=== PATIENT | female | born 1940 | race Caucasian/White ===

== ENCOUNTER 2019-03-14 12:40 | Observation (INO) ==
--- NOTE | 2019-03-14 16:34 | RAD ---
History: Fall and intractable pain Study: Portable AP chest Comparison: December 24, 2016 Findings: There is limited inspiration of clear lungs without pneumothorax or effusion. The heart size is mildly enlarged with intact pacemaker wire leads via the left subclavian vein. No significant bony abnormality is demonstrated. Impression: No acute cardiopulmonary disease Reported By:
--- NOTE | 2019-03-14 16:35 | RAD ---
History: Fall and left shoulder pain Study: Two views of the left shoulder Findings: There is severe osteophytes and deformity about the glenohumeral joint. No fracture is demonstrated. There is severe narrowing about the glenohumeral joint. 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
--- NOTE | 2019-03-14 16:36 | RAD ---
History: Fall and right shoulder pain Study: Two views the right shoulder Comparison: August 31, 2013 Findings: There are moderate osteophytes about the AC joint and moderate to severe osteophytes and joint space narrowing about the glenohumeral joint. No fracture is demonstrated. Impression: Severe erosive osteoarthritis of the glenohumeral joint Reported By:
--- NOTE | 2019-03-14 16:38 | RAD ---
History: Fall and neck pain Study: Five views of the cervical spine, overall AP and lateral Comparison: None Findings: There is straightening of the cervical spine with loss of normal lordotic curvature. There is mild C3-4 and 4 5 and 5 6 disc space narrowing with minimal osteophyte formation. No fracture is demonstrated. There are [id number] osteophytes diffusely about the facet joints. There is heavy calcification in the carotid bifurcations. Impression: Mild lower cervical degenerative disc disease and [id number] diffuse cervical facet joint osteoarthritis Reported By:
[2019-03-14 16:39] LABS: BASOPHILS # (AUTO) 0.1 X10^3/uL (0.0-0.1); BASOPHILS % (AUTO) 1.1 % (0.2-1.0); EOSINOPHILS # (AUTO) 0.1 x10^3/uL (0.0-0.2); EOSINOPHILS % (AUTO) 1.7 % (0.9-2.9); HEMOGLOBIN 12.4 g/dL (12.0-16.0); LYMPHOCYTES # (AUTO) 1.6 X10^3/uL (1.3-2.9); MEAN CORPUSCULAR HEMOGLOBIN 27.8 pg (27.0-34.0); MEAN CORPUSCULAR HGB CONC 32.6 g/dL (33.0-35.0); MEAN CORPUSCULAR VOLUME 85.3 fL (80.0-100.0); MEAN PLATELET VOLUME 8.5 fL (7.4-11.0); MONOCYTES # (AUTO) 0.5 x10^3/uL (0.3-0.8); MONOCYTES % (AUTO) 8.6 % (0.0-13.0); NEUTROPHILS # (AUTO) 3.2 x10^3/uL (2.2-4.8); NEUTROPHILS % (AUTO) 58.6 % (42.0-75.0); PLATELET COUNT 127 X10^3/uL (150.0-450.0); RED BLOOD COUNT 4.46 X10^6/uL (3.5-5.4); RED CELL DISTRIBUTION WIDTH 16.1 % (11.6-16.5); WHITE BLOOD COUNT 5.4 X10^3/uL (3.6-10.0)
[2019-03-14 16:47] LABS: ALANINE AMINOTRANSFERASE 30 Units/L (12-78); ALBUMIN 3.6 g/dL (3.4-5.0); ALKALINE PHOSPHATASE 105 Units/L (46-116); ASPARTATE AMINO TRANSFERASE 37 Units/L (15-37); BLOOD UREA NITROGEN 28 mg/dL (7-18); CALCIUM 9.3 mg/dL (8.5-10.1); CARBON DIOXIDE 26.8 mmol/L (21-32); CHLORIDE 105 mmol/L (98-107); CREATININE 1.11 mg/dL (0.55-1.02); SODIUM 142 mmol/L (136-145); TOTAL PROTEIN 6.9 g/dL (6.4-8.2); eGFR NON BLACK RACES 51 (>60)
[2019-03-14] MEDS ORDERED: FLEXERIL TAB 10 MG PO PRN (16:49)
--- NOTE | 2019-03-14 16:49 | CT ---
HISTORY: Pain status post fall. Study: CT lumbar spine without contrast Comparison: CT abdomen/pelvis dated March 04, 2019. Technique: Multiple axial images of the lumbar spine were obtained from the thoracolumbar junction to the sacrum without the administration of IV contrast. Sagittal and coronal reformats were performed and reviewed. Dose reduction techniques including Automated Exposure Control (AEC) and adjustment of mA and kV were utilized. Findings: No acute fracture or listhesis. Multilevel moderate to severe disc space narrowing with associated endplate sclerosis. Multilevel disc osteophyte complexes and facet arthrosis. Grade 1 anterior listhesis of L5 on S1 that is likely degenerative. Bilateral mild to severe multilevel neural foraminal narrowing and spinal canal stenosis to 6 mm. 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 Other extensive vascular calcifications without evidence of aneurysmal dilatation. Remaining soft tissue structures are unremarkable. IMPRESSION: 1. No acute osseous abnormality. 2. Other chronic findings as above. Reported By:
[2019-03-14 18:06] VITALS: BMI 43.2
[2019-03-14] MEDS: COLACE CAP 100 MG PO SCH (20:39)
[2019-03-14] MEDS: PERCOCET TAB 5/325 MG PO PRN (20:39)
[2019-03-14 22:57] LABS: BILIRUBIN,URINE NEGATIVE (NEGATIVE); BLOOD/HEMOGLOBIN,URINE 1+ (NEGATIVE); GLUCOSE, URINE NEGATIVE (NEGATIVE); KETONES,URINE NEGATIVE (NEGATIVE); LEUKOCYTE ESTERASE ,URINE NEGATIVE (NEGATIVE); NITRITES,URINE NEGATIVE (NEGATIVE); PROTEIN,URINE NEGATIVE (NEGATIVE); UROBILINOGEN,URINE NORMAL (NORMAL)
[2019-03-14 22:59] LABS: APPEARANCE,URINE CLEAR (CLEAR); BACTERIA,URINE NEGATIVE /HPF (NEGATIVE); COLOR,URINE YELLOW (YELLOW); RBC,URINE 0-2 /HPF (NONE SEEN); SQUAMOUS EPITHELIAL CELL,UR RARE /HPF (NEGATIVE)
[2019-03-15 06:17] LABS: BASOPHILS % (AUTO) 0.8 % (0.2-1.0); EOSINOPHILS # (AUTO) 0.1 x10^3/uL (0.0-0.2); HEMATOCRIT 31.7 % (36.0-47.0); HEMOGLOBIN 10.6 g/dL (12.0-16.0); LYMPHOCYTES # (AUTO) 1.4 X10^3/uL (1.3-2.9); LYMPHOCYTES % (AUTO) 35.6 % (21.0-51.0); MEAN CORPUSCULAR HEMOGLOBIN 28.6 pg (27.0-34.0); MEAN CORPUSCULAR HGB CONC 33.5 g/dL (33.0-35.0); MEAN CORPUSCULAR VOLUME 85.4 fL (80.0-100.0); MEAN PLATELET VOLUME 9.3 fL (7.4-11.0); MONOCYTES # (AUTO) 0.4 x10^3/uL (0.3-0.8); MONOCYTES % (AUTO) 9.6 % (0.0-13.0); NEUTROPHILS # (AUTO) 2.1 x10^3/uL (2.2-4.8); PLATELET COUNT 92 X10^3/uL (150.0-450.0); RED BLOOD COUNT 3.72 X10^6/uL (3.5-5.4); RED CELL DISTRIBUTION WIDTH 16.2 % (11.6-16.5)
[2019-03-15 06:27] LABS: ALANINE AMINOTRANSFERASE 24 Units/L (12-78); ALBUMIN 2.7 g/dL (3.4-5.0); ALKALINE PHOSPHATASE 78 Units/L (46-116); ASPARTATE AMINO TRANSFERASE 31 Units/L (15-37); BLOOD UREA NITROGEN 24 mg/dL (7-18); CALCIUM 8.6 mg/dL (8.5-10.1); CARBON DIOXIDE 26.1 mmol/L (21-32); CHLORIDE 111 mmol/L (98-107); COR CA(FOR HYPOALB) 9.6 mg/dL (8.5-10.1); CREATININE 1.09 mg/dL (0.55-1.02); SODIUM 145 mmol/L (136-145); TOTAL PROTEIN 5.3 g/dL (6.4-8.2); eGFR NON BLACK RACES 52 (>60)
[2019-03-15] MEDS ORDERED: PROTONIX INJ 40 MG VIAL IVP ONE (08:54)
--- NOTE | 2019-03-15 09:13 | DR.H&P ---
H&P - History & Physical for Day of: H&P Date: 03/14/19 - Chief Complaint Chief Complaint: FALL, INTRACTALBE BACK PAIN, SHOULDER PAIN - History of Present Illness History of Present Illness: 78WF DIRECT ADMIT FROM DR MAHMOOD OFFICE AFTER PRES ENTING WITH CO FALL, FACE FIRST AFTER LEFT LEG "GAVE OUT". PT REPORTS FALL WAS ON THURSDAY AM AND SHE LAID ON THE FLOOR FOR OVER AN HOUR. PT CO INTRACTABLE SHOULDER PAIN, LOWER BACK PAIN AND NECK PAIN. PT CO SORENESS TO CHEST. PT HAS HX OF OF CAD, AFIB WITH PHOTOGRAPHER AERIAL ANTI COAGULANT USE. PT HAD ADMITTED FOR TREATMENT OF ACUTE ILLNESS. - Past Medical History Past Medical History: Angina, Arthritis, CHF, Hypertension, Hypothyroidism - Past Surgical History Surgical History: Cholecystectomy, Hysterectomy, Ortho Surgery, Other - Family History Family Medical History: Diabetes Mellitus, Hypertension - Social History Does patient currently use any type of tobacco product: No Have you used tobacco products in the last 12 months: No Type of Tobacco Use: None Does any household member use tobacco: No Alcohol Use: None Drug Use: None - Medications Home Medications: No Known Drug Allergies Allergy (Verified 03/14/19 15:25) CONTINUE taking the following medications levothyroxine 25 mcg PO DAILY 03/14/19 [History] - Review of Systems Constitutional: Weakness Eyes: No Symptoms Reported ENT: No Symptoms Reported Respiratory: SOB with Excertion Cardiovascular: Edema Gastrointestinal: Abdominal Pain Genitourinary: No Symptoms Reported Musculoskeletal: Shoulder Pain, Back Pain Skin: No Symptoms Reported Neurological: Weakness - Physical Exam Vital Signs: Temperature 98.0 F Pulse Rate [Left] 75 Respiratory Rate 20 Blood Pressure [Left Arm] 121/56 Blood Pressure [Right Arm] 133/86 Blood Pressure 120/74 O2 Sat by Pulse Oximetry 96 Oriented: Normal Eyes: Normal Ear: Normal Nose: Normal Throat: Normal Respiratory: RLL Diminished, LLL Diminished Cardiovascular: Normal : Normal Auscultation: Bowel Sounds: Normal Palpation: Normal Tenderness: Epigastric Skin: Decreased Turgur, Bruising Musculoskeletal: Left, Shoulder, Knee, Back:Thoracic, Back:Lumbar, Motor Deficit, Sensory Deficit Psychiatric: Anxiety Affect: Anxious Speech Pattern: Clear, Appropriate - Assessment/Plan (1) Fall Status: Acute Plan: ADMIT. CXR, SHOULDER XRAY, L SPINE XRAY ON ADMISSION. PAIN CONTROL, VERIFY HOME MEDICATION. BP MONITORING. PT CONSULT (2) Neck pain Status: Acute (3) Shoulder pain, bilateral Status: Acute (4) Atrial fibrillation Status: Acute (5) CAD (coronary artery disease) Status: Acute (6) HTN (hypertension) Status: Acute (7) Osteoarth NOS-shlder Status: Acute - Allergies Allergies/Adverse Reactions: Allergies Allergy/AdvReac Type Severity Reaction Status Date / Time No Known Drug Allergies Allergy Verified 03/14/19 15:25
[2019-03-15] MEDS: XARELTO PO SCH (09:33)
[2019-03-15] MEDS: K-DUR TAB 20 MEQ PO SCH (09:34)
[2019-03-15] MEDS: COREG TAB 3.125 MG PO SCH ×2 (09:34→20:18)
[2019-03-15] MEDS: TAMBOCOR PO SCH ×2 (09:34→20:18)
[2019-03-15] MEDS: CORDARONE TAB 200 MG PO SCH (09:34)
[2019-03-15] MEDS: SYNTHROID 25 mcg TAB PO SCH (09:34)
[2019-03-15] MEDS: NORCO 10/325 TAB PO PRN ×2 (09:35→20:20)
[2019-03-15] MEDS: ZESTRIL TAB 5 MG PO SCH (09:36)
[2019-03-15] MEDS: NS 1000 ML 1,000 ML IV SCH (09:41)
[2019-03-15] MEDS: SOLU-Medrol 40 MG VIAL IVP SCH ×2 (09:41→20:19)
[2019-03-15] MEDS: MIRABEGRON 50 MG PO SCH (15:03)
[2019-03-15] MEDS: COLACE CAP 100 MG PO SCH (20:18)
[2019-03-15] MEDS ORDERED: ZANTAC PO SCH (21:00)
[2019-03-15] MEDS ORDERED: LYRICA CAP 150 MG PO SCH (21:00)
[2019-03-15] MEDS ORDERED: CRESTOR TAB 10 MG PO SCH (21:00)
[2019-03-16] MEDS: PERCOCET TAB 5/325 MG PO PRN ×2 (03:24→10:18)
[2019-03-16] MEDS: NS 1000 ML 1,000 ML IV SCH (03:26)
[2019-03-16 05:18] LABS: BASOPHILS % (AUTO) 0.3 % (0.2-1.0); HEMATOCRIT 35.8 % (36.0-47.0); HEMOGLOBIN 11.8 g/dL (12.0-16.0); LYMPHOCYTES # (AUTO) 0.5 X10^3/uL (1.3-2.9); LYMPHOCYTES % (AUTO) 9.3 % (21.0-51.0); MEAN CORPUSCULAR VOLUME 85.1 fL (80.0-100.0); MEAN PLATELET VOLUME 9.2 fL (7.4-11.0); MONOCYTES # (AUTO) 0.1 x10^3/uL (0.3-0.8); MONOCYTES % (AUTO) 1.1 % (0.0-13.0); NEUTROPHILS # (AUTO) 4.6 x10^3/uL (2.2-4.8); NEUTROPHILS % (AUTO) 89.3 % (42.0-75.0); PLATELET COUNT 90 X10^3/uL (150.0-450.0); RED BLOOD COUNT 4.21 X10^6/uL (3.5-5.4); RED CELL DISTRIBUTION WIDTH 16.2 % (11.6-16.5); WHITE BLOOD COUNT 5.2 X10^3/uL (3.6-10.0)
[2019-03-16 05:39] LABS: ALANINE AMINOTRANSFERASE 25 Units/L (12-78); ALBUMIN 2.8 g/dL (3.4-5.0); ALKALINE PHOSPHATASE 91 Units/L (46-116); ASPARTATE AMINO TRANSFERASE 32 Units/L (15-37); BLOOD UREA NITROGEN 25 mg/dL (7-18); CALCIUM 8.7 mg/dL (8.5-10.1); CARBON DIOXIDE 22.2 mmol/L (21-32); CHLORIDE 110 mmol/L (98-107); COR CA(FOR HYPOALB) 9.7 mg/dL (8.5-10.1); COR NA(FOR HYPERGLY) 145 mmol/L (136-145); CREATININE 1.13 mg/dL (0.55-1.02); SODIUM 143 mmol/L (136-145); TOTAL PROTEIN 5.8 g/dL (6.4-8.2); eGFR NON BLACK RACES 50 (>60)
[2019-03-16 08:08] VITALS: BP 144/67
[2019-03-16] MEDS: CORDARONE TAB 200 MG PO SCH (08:43)
[2019-03-16] MEDS: COREG TAB 3.125 MG PO SCH (08:43)
[2019-03-16] MEDS: K-DUR TAB 20 MEQ PO SCH (08:43)
[2019-03-16] MEDS: SYNTHROID 25 mcg TAB PO SCH (08:44)
[2019-03-16] MEDS: XARELTO PO SCH (08:44)
[2019-03-16] MEDS: MIRABEGRON 50 MG PO SCH (08:44)
[2019-03-16] MEDS: TAMBOCOR PO SCH (08:44)
[2019-03-16] MEDS: ZESTRIL TAB 5 MG PO SCH (08:44)
== END 2019-03-16 11:45 | disposition home or self-care (01) ==
LOC: MED/SURG
PROVIDERS: ADMIT Internal Medicine; ATTEND Internal Medicine
DX: M25.511 Pain in right shoulder; M75.91 Shoulder lesion, unspecified, right shoulder; I48.91 Unspecified atrial fibrillation; M54.2 Cervicalgia; M25.512 Pain in left shoulder; R26.89 Other abnormalities of gait and mobility; S20.219A Contusion of unspecified front wall of thorax, initial encounter; S40.021A Contusion of right upper arm, initial encounter; I25.10 Atherosclerotic heart disease of native coronary artery without angina pectoris; M19.011 Primary osteoarthritis, right shoulder; M19.012 Primary osteoarthritis, left shoulder; M54.5 Low back pain; S40.022A Contusion of left upper arm, initial encounter; K21.9 Gastro-esophageal reflux disease without esophagitis; Y92.091 Bathroom in other non-institutional residence as the place of occurrence of the external cause; I10 Essential (primary) hypertension; W01.0XXA Fall on same level from slipping, tripping and stumbling without subsequent striking against object, initial encounter; E03.8 Other specified hypothyroidism; Z79.01 Long term (current) use of anticoagulants
CPT/HCPCS: 36415; 71010; 71045; 72040; 72131; 73030; 80053; 81001; 85025; 85610; 96367; 96374; 97162; 97166; A4216; A4222; C9113; G0378; J2920; J7030

== ENCOUNTER 2019-05-23 10:06 | Inpatient (IN) ==
[2019-05-23] MEDS ORDERED: NS 100 ML IV + SPIKE MINIBAG* 100 ML ONE (12:44)
[2019-05-23 12:55] LABS: BASOPHILS # (AUTO) 0.1 X10^3/uL (0.0-0.1); BASOPHILS % (AUTO) 1.1 % (0.2-1.0); EOSINOPHILS # (AUTO) 0.1 x10^3/uL (0.0-0.2); EOSINOPHILS % (AUTO) 2.7 % (0.9-2.9); HEMATOCRIT 34.1 % (36.0-47.0); HEMOGLOBIN 11.4 g/dL (12.0-16.0); LYMPHOCYTES # (AUTO) 1.4 X10^3/uL (1.3-2.9); LYMPHOCYTES % (AUTO) 29.1 % (21.0-51.0); MEAN CORPUSCULAR HEMOGLOBIN 29.1 pg (27.0-34.0); MEAN CORPUSCULAR HGB CONC 33.3 g/dL (33.0-35.0); MEAN CORPUSCULAR VOLUME 87.4 fL (80.0-100.0); MEAN PLATELET VOLUME 8.5 fL (7.4-11.0); MONOCYTES # (AUTO) 0.4 x10^3/uL (0.3-0.8); MONOCYTES % (AUTO) 8.5 % (0.0-13.0); NEUTROPHILS # (AUTO) 2.8 x10^3/uL (2.2-4.8); NEUTROPHILS % (AUTO) 58.6 % (42.0-75.0); PLATELET COUNT 103 X10^3/uL (150.0-450.0); RED CELL DISTRIBUTION WIDTH 16.4 % (11.6-16.5); WHITE BLOOD COUNT 4.7 X10^3/uL (3.6-10.0)
[2019-05-23 12:58] LABS: ALANINE AMINOTRANSFERASE 12 Units/L (12-78); ALBUMIN 3.1 g/dL (3.4-5.0); ALKALINE PHOSPHATASE 82 Units/L (46-116); ASPARTATE AMINO TRANSFERASE 16 Units/L (15-37); BLOOD UREA NITROGEN 27 mg/dL (7-18); CARBON DIOXIDE 27.2 mmol/L (21-32); CHLORIDE 107 mmol/L (98-107); COR CA(FOR HYPOALB) 9.7 mg/dL (8.5-10.1); CREATININE 0.98 mg/dL (0.55-1.02); SODIUM 143 mmol/L (136-145); TOTAL PROTEIN 5.9 g/dL (6.4-8.2); eGFR NON BLACK RACES 58 (>60)
[2019-05-23] MEDS: TEFLARO IV SCH ×2 (13:14→20:42)
[2019-05-23] MEDS: NS 1000 ML 1,000 ML IV SCH (13:14)
[2019-05-23] MEDS: PROTONIX INJ 40 MG VIAL IVP SCH (13:15)
--- NOTE | 2019-05-23 13:33 | RAD ---
History: Follow-up of fractures Study: Three views left foot Comparison: March 17, 2019 Findings: There is osteopenia. There is a comminuted fracture of the diaphysis of the 2nd metatarsal with minimal callus formation, however progressive. There is a transverse fracture of the distal 5th metatarsal. There is pes planus. There are diffuse osteophytes in the tarsal joint spaces there are minimal fractures of the distal 3rd and 4th metatarsals as well. There is peripheral arterial vascular calcification. There is proximal plantar fascial calcification. Impression: Incompletely healed metatarsal fractures, pes planus and diffuse tarsal joint osteoarthritis. Reported By:
[2019-05-23 13:49] VITALS: BMI 39.3
[2019-05-23] MEDS: NORCO 5/325 MG TAB PO PRN ×2 (15:16→20:59)
[2019-05-23 16:08] LABS: BILIRUBIN,URINE NEGATIVE (NEGATIVE); BLOOD/HEMOGLOBIN,URINE 1+ (NEGATIVE); GLUCOSE, URINE NEGATIVE (NEGATIVE); KETONES,URINE NEGATIVE (NEGATIVE); LEUKOCYTE ESTERASE ,URINE NEGATIVE (NEGATIVE); NITRITES,URINE NEGATIVE (NEGATIVE); PROTEIN,URINE 1+ (NEGATIVE); UROBILINOGEN,URINE NORMAL (NORMAL)
[2019-05-23 16:16] LABS: APPEARANCE,URINE CLEAR (CLEAR); BACTERIA,URINE NEGATIVE /HPF (NEGATIVE); COLOR,URINE YELLOW (YELLOW); SQUAMOUS EPITHELIAL CELL,UR FEW /HPF (NEGATIVE)
[2019-05-23] MEDS ORDERED: VITAMIN D (1.25MG) PO SCH (17:15)
--- NOTE | 2019-05-23 17:22 | DR.H&P ---
H&P - History & Physical for Day of: H&P Date: 05/23/19 - Chief Complaint Chief Complaint: LEFT FOOT INFECTED WOUND, LOWER EXTREMITY EDEMA, SOB - History of Present Illness History of Present Illness: 78 WF DIRECT ADMIT FROM [facility] WITH LEFT FOOT OPEN WOUND WITH INCREASED LOCALIZED REDNESS AND TENDERNESS WITH YELLOW D/C. PT HAS INCREASED LOWER EXTREMITY SWELLING, TAKING LASIX WITHOUT IMPROVEMENT. PT HAD HX OF LEFT FOOT FRACTURE, HAS BEEN IN BOOT WITH NON WEIGHT BEARING. PT STATES WOUND APPEARS WHILE FOOT WRAPPED. PT HAD WOUND CULTURE PER HOME HEALTH WITH RESULTS PENDING, BEEN ON KEFLEX SINCE LAST THURSDAY. PT HAS PMH OF MO, CAD, CHF, AFIB, TOOTH CUTTER CLUTCH ANTI COAG THERAPY, HTN AND OA. PT ADMITTED FOR TREATMENT OF LEFT FOOT CELLULITIS, IV ATBX THERAPY, PAIN CONTROL, PT EVALUATION - Past Medical History Past Medical History: Angina, Hypertension, Hypothyroidism, Arthritis, CHF - Past Surgical History Surgical History: Cholecystectomy, Hysterectomy, Ortho Surgery - Family History Family Medical History: Diabetes Mellitus, Hypertension - Social History Does patient currently use any type of tobacco product: No Have you used tobacco products in the last 12 months: No Type of Tobacco Use: None Does any household member use tobacco: No Alcohol Use: None Drug Use: Prescription Drugs - Medications Home Medications: No Known Drug Allergies Allergy (Verified 03/14/19 15:25) CONTINUE taking the following medications cephalexin 500 mg PO BID 05/23/19 [History] ergocalciferol (vitamin D2) [Vitamin D2] 1 cap PO WEEKLY 05/23/19 [History] furosemide 40 mg PO DAILY 05/23/19 [History] montelukast 10 mg PO DAILY 05/23/19 [History] sucralfate 1 tab PO ACHS 05/23/19 [History] - Review of Systems Constitutional: Weakness Eyes: No Symptoms Reported Respiratory: No Symptoms Reported Cardiovascular: No Symptoms Reported Gastrointestinal: Nausea Genitourinary: No Symptoms Reported Musculoskeletal: Foot Pain Skin: Wound Neurological: Weakness - Physical Exam Vital Signs: Temperature 97.8 F Pulse Rate [Left Brachial] 74 Respiratory Rate 18 Blood Pressure [Left Arm] 84/53 Blood Pressure [Right Arm] 142/65 Blood Pressure 142/65 O2 Sat by Pulse Oximetry 99 Oriented: Normal Eyes: Normal Ear: Normal Nose: Normal Throat: Normal Respiratory: RLL Diminished, LLL Diminished Cardiovascular: Irregular, Edema : Normal Auscultation: Bowel Sounds: Normal Skin: Red, Tender, Wound Musculoskeletal: Left, Back:Lumbar, Swelling, Tender Psychiatric: Normal Mood Description: Anxious Affect: Anxious Speech Pattern: Unclear - Assessment/Plan (1) Cellulitis of foot, left Status: Acute Plan: ADMIT, ADMISSION LABS CBC CMP UA. XRAY LEFT FOOT, WOUND CULTURE. IV TEFLARO, WOUND CARE. PAIN CONTROL, RESUME HOME MEDICATION (2) CHF (congestive heart failure) Status: Acute (3) Atrial fibrillation Status: Acute (4) CAD (coronary artery disease) Status: Acute (5) HTN (hypertension) Status: Acute (6) Metatarsal bone fracture Qualifiers: Encounter type: initial encounter Metatarsal bone: second Fracture type: closed Fracture alignment: displaced Laterality: left Qualified Code(s): S92.322A - Displaced fracture of second metatarsal bone, left foot, initial encounter for closed fracture Status: Acute - Allergies Allergies/Adverse Reactions: Allergies Allergy/AdvReac Type Severity Reaction Status Date / Time No Known Drug Allergies Allergy Verified 03/14/19 15:25
[2019-05-23] MEDS: TAMBOCOR PO SCH (18:21)
[2019-05-23] MEDS: CORDARONE TAB 200 MG PO SCH (18:21)
[2019-05-23] MEDS: COLACE CAP 100 MG PO SCH (20:43)
[2019-05-23] MEDS: LYRICA CAP 150 MG PO SCH (20:44)
[2019-05-23] MEDS: COREG TAB 3.125 MG PO SCH (20:44)
[2019-05-23] MEDS: ZANTAC PO SCH (20:44)
[2019-05-23] MEDS: CRESTOR TAB 10 MG PO SCH (20:47)
[2019-05-24] MEDS: NORCO 5/325 MG TAB PO PRN ×2 (03:36→17:18)
[2019-05-24] MEDS: TAMBOCOR PO SCH ×2 (05:10→17:19)
[2019-05-24 06:02] LABS: BASOPHILS % (AUTO) 0.9 % (0.2-1.0); EOSINOPHILS # (AUTO) 0.1 x10^3/uL (0.0-0.2); EOSINOPHILS % (AUTO) 3.5 % (0.9-2.9); HEMATOCRIT 31.3 % (36.0-47.0); HEMOGLOBIN 10.5 g/dL (12.0-16.0); LYMPHOCYTES # (AUTO) 1.2 X10^3/uL (1.3-2.9); MEAN CORPUSCULAR HEMOGLOBIN 29.5 pg (27.0-34.0); MEAN CORPUSCULAR HGB CONC 33.6 g/dL (33.0-35.0); MEAN PLATELET VOLUME 8.5 fL (7.4-11.0); MONOCYTES # (AUTO) 0.4 x10^3/uL (0.3-0.8); MONOCYTES % (AUTO) 10.1 % (0.0-13.0); NEUTROPHILS # (AUTO) 2.1 x10^3/uL (2.2-4.8); NEUTROPHILS % (AUTO) 55.5 % (42.0-75.0); PLATELET COUNT 81 X10^3/uL (150.0-450.0); RED BLOOD COUNT 3.56 X10^6/uL (3.5-5.4); RED CELL DISTRIBUTION WIDTH 16.6 % (11.6-16.5); WHITE BLOOD COUNT 3.8 X10^3/uL (3.6-10.0)
[2019-05-24 06:28] LABS: ALANINE AMINOTRANSFERASE 13 Units/L (12-78); ALBUMIN 2.7 g/dL (3.4-5.0); ALKALINE PHOSPHATASE 69 Units/L (46-116); ASPARTATE AMINO TRANSFERASE 15 Units/L (15-37); BLOOD UREA NITROGEN 28 mg/dL (7-18); CALCIUM 8.4 mg/dL (8.5-10.1); CARBON DIOXIDE 28.4 mmol/L (21-32); CHLORIDE 110 mmol/L (98-107); COR CA(FOR HYPOALB) 9.4 mg/dL (8.5-10.1); CREATININE 1.06 mg/dL (0.55-1.02); SODIUM 145 mmol/L (136-145); TOTAL PROTEIN 5.3 g/dL (6.4-8.2); eGFR NON BLACK RACES 53 (>60)
[2019-05-24] MEDS: COREG TAB 3.125 MG PO SCH ×2 (08:36→21:00)
[2019-05-24] MEDS: SYNTHROID 25 mcg TAB PO SCH (08:36)
[2019-05-24] MEDS: XARELTO PO SCH (08:37)
[2019-05-24] MEDS: K-DUR TAB 20 MEQ PO SCH (08:37)
[2019-05-24] MEDS: LASIX PO SCH (08:37)
[2019-05-24] MEDS: CORDARONE TAB 200 MG PO SCH (08:38)
[2019-05-24] MEDS: TEFLARO IV SCH ×2 (08:38→21:00)
[2019-05-24] MEDS: SINGULAIR TAB 10 MG PO SCH (08:39)
[2019-05-24] MEDS: PROTONIX INJ 40 MG VIAL IVP SCH (08:39)
[2019-05-24] MEDS: MIRABEGRON 50 MG PO SCH (08:41)
[2019-05-24] MEDS ORDERED: NS 100 ML IV + SPIKE MINIBAG* 100 ML ONE (08:46)
[2019-05-24] MEDS ORDERED: ZESTRIL TAB 5 MG PO SCH (09:00)
[2019-05-24] MEDS: CARAFATE PO SCH ×3 (11:07→21:00)
[2019-05-24] MEDS: NS 1000 ML 1,000 ML IV SCH (13:39)
--- NOTE | 2019-05-24 17:41 | PCM.PROG ---
Progress Note - Progress Note for Day of Date of Exam: 05/24/19 - Subjective Subjective: 78WF ADMITTED ON 05/23 WITH CELLULITIS TO LEFT FOOT, NON HEALING OPEN WOUND. PT HAD WOUND CULTURE ON ADMISSION WITH BLOOD CULTURES WHICH ARE PENDING. WBC IS NORMAL. PT HAD FOOT XRAY WITH INCOMPLETE HEALING OF METATARSAL FRACTURE. PT HAS BEEN RELEASED FOR WEIGHT BEARING IN ORTHO SHOE PER [employer]AT [employer]. PT HAS BILATERAL LE EDEMA +3 AND CO INCREASED WEAKNESS AND SOB. PLAN TO GIVE IV LASIX X 2 DOSES. STRICT I & OS AND PRN SUPPLEMENTAL O2. CONTINUE IV ATBX - Past Medical Family Social History Past Med/Fam/Surg Hx: No changes since H&P Allergies: Allergies No Known Drug Allergies Allergy (Verified 03/14/19 15:25) - Review of Systems ROS: No change since H&P - Vital Signs and I&O's Vital Signs: Temperature 98.2 F Pulse Rate [Left Brachial] 73 Respiratory Rate 20 Blood Pressure [Left Arm] 84/53 Blood Pressure [Right Arm] 102/55 Blood Pressure 142/65 O2 Sat by Pulse Oximetry 98 Intake and Output: Intake & Output 05/22/19 05/23/19 05/24/19 05/25/19 11:59 11:59 11:59 11:59 Intake Total 1030 / 1030 720 / 720 Balance 1030 / 1030 720 / 720 - Physical Exam Oriented: Normal Eyes: Normal Ear: Normal Nose: Normal Throat: Normal Respiratory: Diminished Cardiovascular: Irregular, Edema : Normal Auscultation: Bowel Sounds: Normal Skin: Red, Tender, Wound Musculoskeletal: Left, Back:Lumbar, Swelling, Tender Psychiatric: Normal Mood Description: Anxious Affect: Anxious Speech Pattern: Clear, Appropriate - Laboratory and Diagnostics Result Diagrams: 05/24/19 05:30 05/24/19 05:30 Labs: Laboratory WBC 3.8 X10^3/uL (3.6-10.0) 05/24/19 05:30 RBC 3.56 X10^6/uL (3.5-5.4) 05/24/19 05:30 Hgb 10.5 g/dL (12.0-16.0) L 05/24/19 05:30 Hct 31.3 % (36.0-47.0) L 05/24/19 05:30 MCV 88.0 fL (80.0-100.0) 05/24/19 05:30 MCH 29.5 pg (27.0-34.0) 05/24/19 05:30 MCHC 33.6 g/dL (33.0-35.0) 05/24/19 05:30 RDW 16.6 % (11.6-16.5) H 05/24/19 05:30 Plt Count 81 X10^3/uL (150.0-450.0) L 05/24/19 05:30 MPV 8.5 fL (7.4-11.0) 05/24/19 05:30 Neut % (Auto) 55.5 % (42.0-75.0) 05/24/19 05:30 Lymph % (Auto) 30.0 % (21.0-51.0) 05/24/19 05:30 Twiggs % (Auto) 10.1 % (0.0-13.0) 05/24/19 05:30 Eos % (Auto) 3.5 % (0.9-2.9) H 05/24/19 05:30 Baso % (Auto) 0.9 % (0.2-1.0) 05/24/19 05:30 Neut # (Auto) 2.1 x10^3/uL (2.2-4.8) L 05/24/19 05:30 Lymph # (Auto) 1.2 X10^3/uL (1.3-2.9) L 05/24/19 05:30 Twiggs # (Auto) 0.4 x10^3/uL (0.3-0.8) 05/24/19 05:30 Eos # (Auto) 0.1 x10^3/uL (0.0-0.2) 05/24/19 05:30 Baso # (Auto) 0.0 X10^3/uL (0.0-0.1) 05/24/19 05:30 Absolute Nucleated RBC 0.1 /100WBC 05/24/19 05:30 Sodium 145 mmol/L (136-145) 05/24/19 05:30 Corrected Sodium TNP 05/24/19 05:30 Potassium 3.5 mmol/L (3.5-5.1) 05/24/19 05:30 Chloride 110 mmol/L (98-107) H 05/24/19 05:30 Carbon Dioxide 28.4 mmol/L (21-32) 05/24/19 05:30 BUN 28 mg/dL (7-18) H 05/24/19 05:30 Creatinine 1.06 mg/dL (0.55-1.02) H 05/24/19 05:30 Est GFR (MDRD) Af Amer > 60 (>60) 05/24/19 05:30 Est GFR (MDRD) Non-Af 53 (>60) L 05/24/19 05:30 Glucose 90 mg/dL (65-99) 05/24/19 05:30 Calcium 8.4 mg/dL (8.5-10.1) L 05/24/19 05:30 Corrected Calcium 9.4 mg/dL (8.5-10.1) 05/24/19 05:30 Total Bilirubin 0.40 mg/dL (0.2-1.0) 05/24/19 05:30 AST 15 Units/L (15-37) 05/24/19 05:30 ALT 13 Units/L (12-78) 05/24/19 05:30 Alkaline Phosphatase 69 Units/L (46-116) 05/24/19 05:30 Total Protein 5.3 g/dL (6.4-8.2) L 05/24/19 05:30 Albumin 2.7 g/dL (3.4-5.0) L 05/24/19 05:30 Globulin 2.6 g/dL (2.5-4.5) 05/24/19 05:30 Albumin/Globulin Ratio 1.0 Ratio (1.1-2.1) L 05/24/19 05:30 Specimen Type Random urine 05/23/19 15:50 Urine Color Yellow (YELLOW) 05/23/19 15:50 Urine Appearance Clear (CLEAR) 05/23/19 15:50 Urine pH 6.0 (5.0 - 8.0) 05/23/19 15:50 Ur Specific Holley 1.020 (1.000-1.030) 05/23/19 15:50 Urine Protein 1+ (NEGATIVE) 05/23/19 15:50 Urine Glucose (UA) Negative (NEGATIVE) 05/23/19 15:50 Urine Ketones Negative (NEGATIVE) 05/23/19 15:50 Urine Occult Blood 1+ (NEGATIVE) 05/23/19 15:50 Urine Nitrite Negative (NEGATIVE) 05/23/19 15:50 Urine Bilirubin Negative (NEGATIVE) 05/23/19 15:50 Urine Urobilinogen Normal (NORMAL) 05/23/19 15:50 Ur Leukocyte Esterase Negative (NEGATIVE) 05/23/19 15:50 Urine RBC 3-5 /HPF (NONE SEEN) 05/23/19 15:50 Urine WBC 0-2 /HPF (NONE SEEN) 05/23/19 15:50 Ur Squamous Epith Cells Few /HPF (NEGATIVE) 05/23/19 15:50 Urine Bacteria Negative /HPF (NEGATIVE) 05/23/19 15:50 Ur Culture Indicated? No/not indicated 05/23/19 15:50 - Plan (1) Cellulitis of foot, left Status: Acute Plan: AM LABS CBC CMP. XRAY LEFT FOOT, WOUND CULTURE ON ADMISSION. IV TEFLARO, WOUND CARE. PAIN CONTROL, RESUME HOME MEDICATION (2) CHF (congestive heart failure) Status: Acute Plan: IV LASIX, STRICT I & OS (3) Atrial fibrillation Status: Acute (4) CAD (coronary artery disease) Status: Acute (5) HTN (hypertension) Status: Acute (6) Metatarsal bone fracture Status: Acute Qualifiers: Encounter type: initial encounter Metatarsal bone: second Fracture type: closed Fracture alignment: displaced Laterality: left Qualified Code(s): S92.322A - Displaced fracture of second metatarsal bone, left foot, initial encounter for closed fracture
[2019-05-24] MEDS: MIRALAX POWDER (1 DOSE 17 G) PO SCH (20:58)
[2019-05-24] MEDS: COLACE CAP 100 MG PO SCH (21:00)
[2019-05-24] MEDS: ZANTAC PO SCH (21:00)
[2019-05-24] MEDS: LYRICA CAP 150 MG PO SCH (21:00)
[2019-05-24] MEDS: CRESTOR TAB 10 MG PO SCH (21:00)
[2019-05-25] MEDS: TAMBOCOR PO SCH ×2 (05:05→18:40)
[2019-05-25 05:21] LABS: EOSINOPHILS # (AUTO) 0.1 x10^3/uL (0.0-0.2); EOSINOPHILS % (AUTO) 2.7 % (0.9-2.9); HEMOGLOBIN 10.7 g/dL (12.0-16.0); LYMPHOCYTES % (AUTO) 23.2 % (21.0-51.0); MEAN CORPUSCULAR HEMOGLOBIN 29.6 pg (27.0-34.0); MEAN CORPUSCULAR HGB CONC 33.4 g/dL (33.0-35.0); MEAN CORPUSCULAR VOLUME 88.5 fL (80.0-100.0); MONOCYTES # (AUTO) 0.4 x10^3/uL (0.3-0.8); MONOCYTES % (AUTO) 9.4 % (0.0-13.0); NEUTROPHILS # (AUTO) 2.6 x10^3/uL (2.2-4.8); NEUTROPHILS % (AUTO) 63.7 % (42.0-75.0); PLATELET COUNT 91 X10^3/uL (150.0-450.0); RED BLOOD COUNT 3.61 X10^6/uL (3.5-5.4); RED CELL DISTRIBUTION WIDTH 16.2 % (11.6-16.5); WHITE BLOOD COUNT 4.1 X10^3/uL (3.6-10.0)
[2019-05-25] MEDS: CARAFATE PO SCH ×4 (05:33→21:06)
[2019-05-25 05:42] LABS: ALANINE AMINOTRANSFERASE 13 Units/L (12-78); ALBUMIN 2.7 g/dL (3.4-5.0); ALKALINE PHOSPHATASE 73 Units/L (46-116); ASPARTATE AMINO TRANSFERASE 18 Units/L (15-37); BLOOD UREA NITROGEN 29 mg/dL (7-18); CALCIUM 8.3 mg/dL (8.5-10.1); CARBON DIOXIDE 27.4 mmol/L (21-32); CHLORIDE 108 mmol/L (98-107); COR CA(FOR HYPOALB) 9.3 mg/dL (8.5-10.1); CREATININE 1.03 mg/dL (0.55-1.02); SODIUM 143 mmol/L (136-145); TOTAL PROTEIN 5.3 g/dL (6.4-8.2); eGFR NON BLACK RACES 55 (>60)
[2019-05-25] MEDS ORDERED: NS 100 ML IV + SPIKE MINIBAG* 100 ML ONE (08:34)
[2019-05-25] MEDS: TEFLARO IV SCH ×2 (09:19→21:05)
[2019-05-25] MEDS: MIRABEGRON 50 MG PO SCH (09:21)
[2019-05-25] MEDS: SYNTHROID 25 mcg TAB PO SCH (09:22)
[2019-05-25] MEDS: PROTONIX INJ 40 MG VIAL IVP SCH (09:22)
[2019-05-25] MEDS: SINGULAIR TAB 10 MG PO SCH (09:22)
[2019-05-25] MEDS: XARELTO PO SCH (09:22)
[2019-05-25] MEDS: LASIX IVP SCH ×2 (09:23→21:05)
[2019-05-25] MEDS: K-DUR TAB 20 MEQ PO SCH (09:23)
[2019-05-25] MEDS: CORDARONE TAB 200 MG PO SCH (11:43)
[2019-05-25] MEDS: COREG TAB 3.125 MG PO SCH ×2 (11:44→21:06)
[2019-05-25] MEDS: LASIX PO SCH (11:44)
[2019-05-25] MEDS: MILK OF MAGNESIA PO SCH ×2 (11:44→21:06)
[2019-05-25] MEDS ORDERED: BUTT CREAM (COMPOUND) TOP PRN (14:51)
[2019-05-25] MEDS: CRESTOR TAB 10 MG PO SCH (21:05)
[2019-05-25] MEDS: LYRICA CAP 150 MG PO SCH (21:06)
[2019-05-25] MEDS: COLACE CAP 100 MG PO SCH (21:06)
[2019-05-25] MEDS: NORCO 5/325 MG TAB PO PRN (21:07)
[2019-05-25] MEDS: MIRALAX POWDER (1 DOSE 17 G) PO SCH (21:11)
[2019-05-25] MEDS: ZANTAC PO SCH (21:13)
[2019-05-26 05:41] LABS: BASOPHILS # (AUTO) 0.1 X10^3/uL (0.0-0.1); BASOPHILS % (AUTO) 1.4 % (0.2-1.0); EOSINOPHILS # (AUTO) 0.1 x10^3/uL (0.0-0.2); EOSINOPHILS % (AUTO) 2.1 % (0.9-2.9); HEMOGLOBIN 10.7 g/dL (12.0-16.0); LYMPHOCYTES # (AUTO) 1.3 X10^3/uL (1.3-2.9); LYMPHOCYTES % (AUTO) 28.4 % (21.0-51.0); MEAN CORPUSCULAR HEMOGLOBIN 29.5 pg (27.0-34.0); MEAN CORPUSCULAR HGB CONC 33.5 g/dL (33.0-35.0); MEAN CORPUSCULAR VOLUME 88.1 fL (80.0-100.0); MEAN PLATELET VOLUME 9.2 fL (7.4-11.0); MONOCYTES # (AUTO) 0.4 x10^3/uL (0.3-0.8); MONOCYTES % (AUTO) 8.2 % (0.0-13.0); NEUTROPHILS # (AUTO) 2.8 x10^3/uL (2.2-4.8); NEUTROPHILS % (AUTO) 59.9 % (42.0-75.0); PLATELET COUNT 91 X10^3/uL (150.0-450.0); RED BLOOD COUNT 3.63 X10^6/uL (3.5-5.4); WHITE BLOOD COUNT 4.6 X10^3/uL (3.6-10.0)
[2019-05-26 05:58] LABS: ALANINE AMINOTRANSFERASE 13 Units/L (12-78); ALBUMIN 2.7 g/dL (3.4-5.0); ALKALINE PHOSPHATASE 77 Units/L (46-116); ASPARTATE AMINO TRANSFERASE 16 Units/L (15-37); BLOOD UREA NITROGEN 28 mg/dL (7-18); CALCIUM 8.5 mg/dL (8.5-10.1); CARBON DIOXIDE 30.9 mmol/L (21-32); CHLORIDE 107 mmol/L (98-107); COR CA(FOR HYPOALB) 9.5 mg/dL (8.5-10.1); CREATININE 1.18 mg/dL (0.55-1.02); SODIUM 144 mmol/L (136-145); TOTAL PROTEIN 5.4 g/dL (6.4-8.2); eGFR NON BLACK RACES 47 (>60)
[2019-05-26] MEDS: TAMBOCOR PO SCH (06:09)
[2019-05-26] MEDS: CARAFATE PO SCH ×2 (06:10→11:32)
[2019-05-26] MEDS ORDERED: NS 100 ML IV + SPIKE MINIBAG* 100 ML ONE (09:26)
[2019-05-26] MEDS: K-DUR TAB 20 MEQ PO SCH (09:42)
[2019-05-26] MEDS: SYNTHROID 25 mcg TAB PO SCH (09:42)
[2019-05-26] MEDS: TEFLARO IV SCH (09:42)
[2019-05-26] MEDS: XARELTO PO SCH (09:43)
[2019-05-26] MEDS: COREG TAB 3.125 MG PO SCH (09:43)
[2019-05-26] MEDS: LASIX PO SCH (09:43)
[2019-05-26] MEDS: PROTONIX INJ 40 MG VIAL IVP SCH (09:44)
[2019-05-26] MEDS: CORDARONE TAB 200 MG PO SCH (09:44)
[2019-05-26] MEDS: SINGULAIR TAB 10 MG PO SCH (09:44)
[2019-05-26] MEDS: MILK OF MAGNESIA PO SCH (09:44)
[2019-05-26] MEDS: MIRABEGRON 50 MG PO SCH (09:48)
[2019-05-26] MEDS: NS 1000 ML 1,000 ML IV SCH (09:52)
[2019-05-26 13:32] VITALS: BP 127/50
[2019-05-27] MEDS ORDERED: PROTONIX TAB 40 MG PO SCH (09:00)
== END 2019-05-26 14:26 | disposition home or self-care (01) | DRG 603 ==
LOC: MED/SURG 11:40
PROVIDERS: ADMIT Internal Medicine; ATTEND Internal Medicine
DX: S92.322A Displaced fracture of second metatarsal bone, left foot, initial encounter for closed fracture; Y92.9 Unspecified place or not applicable; R26.89 Other abnormalities of gait and mobility; I48.91 Unspecified atrial fibrillation; R60.0 Localized edema; J44.9 Chronic obstructive pulmonary disease, unspecified; I25.10 Atherosclerotic heart disease of native coronary artery without angina pectoris; E66.01 Morbid (severe) obesity due to excess calories; R06.02 Shortness of breath; Z79.01 Long term (current) use of anticoagulants; S91.302A Unspecified open wound, left foot, initial encounter; I50.9 Heart failure, unspecified; L03.116 Cellulitis of left lower limb; X58.XXXA Exposure to other specified factors, initial encounter; I11.0 Hypertensive heart disease with heart failure; M19.90 Unspecified osteoarthritis, unspecified site
CPT/HCPCS: 36415; 73630; 80053; 81001; 85025; 87040; 87075; 94760; 97110; 97116; 97162; 97166; 97535; A4222; C9113; J0712; J1940; J7030; J7050

== ENCOUNTER 2019-05-26 14:26 | Inpatient (IN) ==
[2019-05-26] MEDS ORDERED: BUTT CREAM (COMPOUND) TOP PRN (15:32)
[2019-05-26] MEDS ORDERED: VITAMIN D (1.25MG) PO SCH (15:32)
--- NOTE | 2019-05-26 17:07 | PT/OTEVAL ---
PT/OT OBJECTIVES - HISTORY Prescription: OT consult Diagnosis: L foot cellulitis Precautions: fall PMH: PMHx is signifiacant but not limited to Angina, Hypertension, Hypothyroidism, Arthritis, CHF Prior Level of Function: Assistance Required Other: Prior to hospitalization, pt lives with daughter and being assisted after having Fx of L foot back in march 2019. But per pt, she was independent prior to having fx. Pt utilizes FWW for functional mobility. Pt also reported of having HH nurse. - COGNITION Mental Status: Alert, Oriented, Name, Date, Place, Purpose Communication Status: Verbal Ability to Follow Directions: 3 Step - PAIN Right Shoulder Pain Scale: Discomfort (1-2) Comments: pt denied pain meds. B shoulders Pain Scale: No Pain - TRANSFERS Supine to Sit: Moderate Sit to Stand: Moderate Sit or Stand Pivot: Moderate - ADL'S Feeding: Independent Grooming: Setup Upper Body ADL: Minimum Lower Body ADL: Minimum Toileting: Minimum - BALANCE Static Sitting: Good Standing: Fair Dynamic Sitting: Good Standing: Fair - NEUROMOTOR/SENSATION Duran. Lower Ext Sensation: WFL Coordination: WFL Duran. Upper Ext Sensation: WFL Coordination: WFL - HAND DOMINANCE Extremity Function: Hand Dominance: Right - ROM Right UE ROM: Impaired Muscle Tone: WFL Left UE ROM: WFL Muscle Tone: WFL - STRENGTH Bilateral LE Strength Number: 3 Other comment: 3/5 grossly graded Bilateral UE Strength Number: 3 Other comment: 3-/5 B shoudlers; 3/5 distal segments PT/OT ASSESSMENT - OT Problem List: Decreased Mobility ADL's, Decreased Dressing, Decreased Grooming, Decreased UE Strength Other, comment: decreased F.A.T. - OT GOALS Short Term Goals Days: 5 Mobility for ADL's: Pt will improve toilet t/f supv A with AE Safety Awareness: Pt will demonstrate F safety awareness to decrease fall risk Dressing: Pt will perform UB/LB dressing supv A with AE as needed. Upper Ext. Strength/Use: Pt will increase BUE strength to 4/5 to increase ADL,t/f and mobility Other: Pt will imporve F.A.T. to G- to increase efficiency with ADL [employer] Cutter Goals Days: 10 Mobility for ADL's: Pt will improve toilet t/f setup A with AE Safety Awareness: Pt will demonstrate G safety awareness to decrease fall risk Dressing: Pt will perform UB/LB dressing setup A with AE as needed. Upper Ext. Strength/Use: Pt will increase BUE strength to 5/5 to increase ADL,t/f and mobility Other: Pt will imporve F.A.T. to G to increase efficiency with ADL - PATIENT GOALS Goals Discussed with Patient/Family: Yes - PLAN Suggested Treatment Plan: Therapeutic Activity, Self Care Training, Neuro Re- education, Therapeutic Ex with HEP, Home Management, Patient Education, Family Education - FREQUENCY AND DURATION OT: 5x a week x hospital stay Expected Continuation of Care at Discharge: Home
[2019-05-26] MEDS: CARAFATE PO SCH ×2 (17:09→21:19)
[2019-05-26] MEDS: TAMBOCOR PO SCH (17:32)
[2019-05-26] MEDS: COLACE CAP 100 MG PO SCH (21:18)
[2019-05-26] MEDS: CRESTOR TAB 10 MG PO SCH (21:18)
[2019-05-26] MEDS: COREG TAB 3.125 MG PO SCH (21:18)
[2019-05-26] MEDS: LYRICA CAP 150 MG PO SCH (21:19)
[2019-05-26] MEDS: ZANTAC PO SCH (21:19)
[2019-05-26] MEDS: TEFLARO IV SCH (21:20)
[2019-05-26] MEDS: MILK OF MAGNESIA PO SCH (21:20)
[2019-05-26] MEDS: MIRALAX POWDER (1 DOSE 17 G) PO SCH (21:20)
[2019-05-26] MEDS ORDERED: NS 100 ML IV + SPIKE MINIBAG* 100 ML ONE (21:21)
[2019-05-27] MEDS: TAMBOCOR PO SCH ×2 (05:49→17:27)
[2019-05-27] MEDS: CARAFATE PO SCH ×4 (05:49→21:00)
[2019-05-27] MEDS ORDERED: NS 100 ML IV + SPIKE MINIBAG* 100 ML ONE ×2 (08:21→20:49)
[2019-05-27] MEDS: MIRABEGRON 50 MG PO SCH (08:30)
[2019-05-27] MEDS: XARELTO PO SCH (08:30)
[2019-05-27] MEDS: PROTONIX TAB 40 MG PO SCH (08:31)
[2019-05-27] MEDS: SINGULAIR TAB 10 MG PO SCH (08:31)
[2019-05-27] MEDS: SYNTHROID 25 mcg TAB PO SCH (08:31)
[2019-05-27] MEDS: CORDARONE TAB 200 MG PO SCH (08:31)
[2019-05-27] MEDS: K-DUR TAB 20 MEQ PO SCH (08:31)
[2019-05-27] MEDS: COREG TAB 3.125 MG PO SCH ×2 (08:32→21:02)
[2019-05-27] MEDS: TEFLARO IV SCH ×2 (08:32→21:00)
[2019-05-27] MEDS: LASIX PO SCH (08:32)
[2019-05-27] MEDS: NORCO 5/325 MG TAB PO PRN ×2 (08:36→16:00)
[2019-05-27] MEDS: MILK OF MAGNESIA PO SCH ×2 (10:33→21:03)
--- NOTE | 2019-05-27 13:27 | PT/OTEVAL ---
PT/OT OBJECTIVES - HISTORY Prescription: PT Consult Diagnosis: L LE Cellulitis, S/P metatarsal fx, Weakness Precautions: falls PMH: Pertinent Dx & PMHx is significant but not limited to agina, HTN, hypothyroidism, arthritis, CHF & A-fib. Prior Level of Function: Independent Other: Per Pt. interview, Pt. lives alone in a one level house. Pt.'s daughter comes to her house to help her last time she hurt her L foot but reports of being independent prior to injury. Pt. states, she uses a RW for short distance ambulation, has a w/c, shower seat & bedside commode. - COGNITION Mental Status: Alert, Oriented, Name, Place, Purpose Communication Status: Verbal Ability to Follow Directions: 3 Step Memory Loss: None - PAIN B shoulders Pain Scale: Moderate (5-6) Comments: nursing provided pain meds - BED MOBILITY Rolling: Maximum, x1 Scooting: Maximum, x1 Bridging: Not Tested - TRANSFERS Supine to Sit: Moderate, x1 Sit to Stand: Moderate Sit or Stand Pivot: Moderate - BALANCE Static Sitting: Good Standing: Fair Balance Comment: Fair (+) stat standing during ADLs. Dynamic Sitting: Fair Standing: Fair Balance Comment: doesn't reach far out of SARAY. - NEUROMOTOR/SENSATION Duran. Lower Ext Sensation: WFL Coordination: WFL Proprioception: WFL - HAND DOMINANCE Extremity Function: Hand Dominance: Right - ROM Bilateral LE ROM: WFL Muscle Tone: WFL - STRENGTH Bilateral LE Strength Number: 3 Other comment: 3/5 grossly graded Bilateral UE Strength Number: 3 Other comment: 3-/5 B shoudlers; 3/5 distal segments - GAIT Pt. ambulates how many feet?: 20 Amount of assistance required: Moderate Amount of Assistance Required: Moderate Type of Assistive Device: Rolling Walker Comments: slow pace & decrease step length/height PT/OT ASSESSMENT - PT Problem List: Decreased Bed Mobility, Decreased Transfers, Decreased Gait, Decreased Balance, Decreased Safety, Decreased LE Strength - PT GOALS Short Term Goals Days: 10 Mobility: improve bed mobility to supv/touch A to facilitate EOB tasks Transfers: improve functional transfers to min to supv/touch A to facilitate OOB tasks Gait: improve gait using RW for 50-100ft at supv/touch A w/o LOB noted Balance: improve sitting dynamic to G ROM/Strength: increase B LE ms strength to 4/5 Others: sit to stand transition at supv/touch A to set up A [facility] Goals Days: 20 Mobility: improve bed mobility to set up A to facilitate EOB tasks Transfers: improve functional transfers to set up A to I to facilitate OOB tasks Gait: gait using RW for 150-200ft at set up A to mod I w/o LOB noted Balance: improve standing S/D to G/G- ROM/Strength: increase B LE ms strength to 4+ to 5/5 - OT GOALS Short Term Goals Days: 5 Mobility for ADL's: Pt will improve toilet t/f supv A with AE Safety Awareness: Pt will demonstrate F safety awareness to decrease fall risk Dressing: Pt will perform UB/LB dressing supv A with AE as needed. Upper Ext. Strength/Use: Pt will increase BUE strength to 4/5 to increase ADL,t/f and mobility Other: Pt will imporve F.A.T. to G- to increase efficiency with ADL [facility] Goals Days: 10 Mobility for ADL's: Pt will improve toilet t/f setup A with AE Safety Awareness: Pt will demonstrate G safety awareness to decrease fall risk Dressing: Pt will perform UB/LB dressing setup A with AE as needed. Upper Ext. Strength/Use: Pt will increase BUE strength to 5/5 to increase ADL,t/f and mobility Other: Pt will imporve F.A.T. to G to increase efficiency with ADL - PATIENT GOALS Patient/Family Goals: return to PLOF Goals Discussed with Patient/Family: Yes Rehabilitation Potential: fair to good Justification for Potential: higher PLOF, able to participate, motivated - PLAN Suggested Treatment Plan: Bed Mobility Training, Therapeutic Activity, Gait Training, Neuro Re-education, Therapeutic Ex with HEP, Patient Education, Family Education - FREQUENCY AND DURATION PT: 6x/wk x hosp stay Expected Continuation of Care at Discharge: Determined on Progress
[2019-05-27] MEDS: CRESTOR TAB 10 MG PO SCH (21:00)
[2019-05-27] MEDS: LYRICA CAP 150 MG PO SCH (21:00)
[2019-05-27] MEDS: COLACE CAP 100 MG PO SCH (21:01)
[2019-05-27] MEDS: ZANTAC PO SCH (21:01)
[2019-05-27] MEDS: MIRALAX POWDER (1 DOSE 17 G) PO SCH (21:03)
[2019-05-28] MEDS: CARAFATE PO SCH ×4 (05:31→20:50)
[2019-05-28] MEDS: TAMBOCOR PO SCH ×2 (05:31→17:53)
[2019-05-28] MEDS: SYNTHROID 25 mcg TAB PO SCH (09:01)
[2019-05-28] MEDS: MILK OF MAGNESIA PO SCH ×2 (09:01→20:48)
[2019-05-28] MEDS: LASIX PO SCH (09:01)
[2019-05-28] MEDS: PROTONIX TAB 40 MG PO SCH (09:01)
[2019-05-28] MEDS: XARELTO PO SCH (09:01)
[2019-05-28] MEDS: SINGULAIR TAB 10 MG PO SCH (09:01)
[2019-05-28] MEDS: K-DUR TAB 20 MEQ PO SCH (09:02)
[2019-05-28] MEDS: COREG TAB 3.125 MG PO SCH ×2 (09:02→20:50)
[2019-05-28] MEDS: CORDARONE TAB 200 MG PO SCH (09:02)
[2019-05-28] MEDS ORDERED: NS 100 ML IV + SPIKE MINIBAG* 100 ML ONE ×2 (09:05→21:40)
[2019-05-28] MEDS: TEFLARO IV SCH ×2 (09:07→20:48)
[2019-05-28] MEDS: NORCO 5/325 MG TAB PO PRN ×2 (09:07→20:49)
[2019-05-28] MEDS: MIRABEGRON 50 MG PO SCH (09:08)
--- NOTE | 2019-05-28 11:46 | DR.UPDATE ---
H&P Update History and Physical Update: History and Physical reviewed and patient examined. reviewed on 05/26 Changes noted: NO
--- NOTE | 2019-05-28 11:49 | PCM.PROG ---
Progress Note - Progress Note for Day of Date of Exam: 05/28/19 - Subjective Subjective: 78 WF ADMITTED TO [facility] ON [facility]/26 FOR PT AND IV ATBX. PT IS COOPERATIVE WITH PHYSICAL THERAPY. PT CO INCREASED ARTHRITIS PAIN THIS AM. PT STATES SHE DOES NOT LIKE TO TAKE MUCH NORCO DUE TO INCREASED CONSTIPATION. WOUND TO LLE SIGNIFICANTLY IMPROVED, IMPROVED BILATERAL LOWER EXTREMITY EDEMA - Past Medical Family Social History Past Med/Fam/Surg Hx: No changes since H&P Allergies: Allergies No Known Drug Allergies Allergy (Verified 03/14/19 15:25) - Review of Systems ROS: No change since H&P - Vital Signs and I&O's Vital Signs: Temperature 98.2 F Pulse Rate [Left Radial] 76 Respiratory Rate 20 Blood Pressure [Left Arm] 121/46 Blood Pressure [Right Arm] 98/55 Blood Pressure 127/50 O2 Sat by Pulse Oximetry 94 Intake and Output: Intake & Output 05/25/19 05/26/19 05/27/19 05/28/19 11:59 11:59 11:59 11:59 Intake Total 1010 / 1010 820 / 820 Balance 1010 / 1010 820 / 820 - Physical Exam Oriented: Normal Eyes: Normal Ear: Normal Nose: Normal Throat: Normal Respiratory: Normal Cardiovascular: Normal : Normal Auscultation: Bowel Sounds: Normal Palpation: Normal Tenderness: Normal Skin: Wound Musculoskeletal: Right, Left, Shoulder, Back:Lumbar Psychiatric: Normal Mood Description: Calm Speech Pattern: Clear, Appropriate - Plan (1) Weakness Status: Acute Plan: [facility], IV ATBX FOR WOUND. CONTINUE CURRENT MEDICATION REGIMEN. PAIN CONTROL. ROUTINE LABS (2) Shoulder pain, bilateral Status: Chronic (3) CAD (coronary artery disease) Status: Chronic (4) HTN (hypertension) Status: Chronic (5) Atrial fibrillation Status: Chronic (6) Cellulitis of foot, left Status: Acute (7) CHF (congestive heart failure) Status: Acute
[2019-05-28] MEDS ORDERED: OFIRMEV IV 1000 MG VIAL 500 MG/50 ML VIAL IV PRN (11:51)
[2019-05-28] MEDS: SOLU-Medrol 40 MG VIAL IVP SCH ×2 (13:41→20:48)
[2019-05-28] MEDS: OSCAL+D or CALTRATE+D PO SCH ×2 (13:41→20:49)
[2019-05-28] MEDS: MIRALAX POWDER (1 DOSE 17 G) PO SCH (20:48)
[2019-05-28] MEDS: ZANTAC PO SCH (20:49)
[2019-05-28] MEDS: COLACE CAP 100 MG PO SCH (20:49)
[2019-05-28] MEDS: NS 50 ML IV 50 ML ONE ×2 (20:50→20:57)
[2019-05-28] MEDS: LYRICA CAP 150 MG PO SCH (20:50)
[2019-05-28] MEDS: CRESTOR TAB 10 MG PO SCH (20:50)
[2019-05-29] MEDS: CARAFATE PO SCH ×4 (05:37→21:32)
[2019-05-29] MEDS: TAMBOCOR PO SCH ×2 (05:37→18:20)
[2019-05-29 08:50] VITALS: BMI 36.0
[2019-05-29] MEDS ORDERED: NS 100 ML IV + SPIKE MINIBAG* 100 ML ONE ×2 (08:51→21:27)
[2019-05-29] MEDS: MILK OF MAGNESIA PO SCH ×2 (09:23→21:31)
[2019-05-29] MEDS: LASIX PO SCH (09:23)
[2019-05-29] MEDS: COREG TAB 3.125 MG PO SCH ×2 (09:23→21:32)
[2019-05-29] MEDS: CORDARONE TAB 200 MG PO SCH (09:23)
[2019-05-29] MEDS: K-DUR TAB 20 MEQ PO SCH (09:23)
[2019-05-29] MEDS: TEFLARO IV SCH ×2 (09:24→21:31)
[2019-05-29] MEDS: PROTONIX TAB 40 MG PO SCH (09:24)
[2019-05-29] MEDS: MIRABEGRON 50 MG PO SCH (09:24)
[2019-05-29] MEDS: SINGULAIR TAB 10 MG PO SCH (09:24)
[2019-05-29] MEDS: OSCAL+D or CALTRATE+D PO SCH ×2 (09:24→21:31)
[2019-05-29] MEDS: SYNTHROID 25 mcg TAB PO SCH (09:24)
[2019-05-29] MEDS: XARELTO PO SCH (09:25)
[2019-05-29] MEDS: COLACE CAP 100 MG PO SCH (21:31)
[2019-05-29] MEDS: MIRALAX POWDER (1 DOSE 17 G) PO SCH (21:32)
[2019-05-29] MEDS: LYRICA CAP 150 MG PO SCH (21:32)
[2019-05-29] MEDS: CRESTOR TAB 10 MG PO SCH (21:32)
[2019-05-29] MEDS: ZANTAC PO SCH (21:32)
[2019-05-30] MEDS ORDERED: PHENERGAN TAB 25 MG PO PRN (03:14)
[2019-05-30] MEDS ORDERED: PHENERGAN TAB 25 MG PO ONE (03:16)
[2019-05-30 05:22] LABS: BASOPHILS % (AUTO) 0.8 % (0.2-1.0); EOSINOPHILS % (AUTO) 0.6 % (0.9-2.9); HEMOGLOBIN 10.4 g/dL (12.0-16.0); LYMPHOCYTES # (AUTO) 1.2 X10^3/uL (1.3-2.9); LYMPHOCYTES % (AUTO) 22.7 % (21.0-51.0); MEAN CORPUSCULAR HEMOGLOBIN 29.6 pg (27.0-34.0); MEAN CORPUSCULAR HGB CONC 33.4 g/dL (33.0-35.0); MEAN CORPUSCULAR VOLUME 88.5 fL (80.0-100.0); MEAN PLATELET VOLUME 9.7 fL (7.4-11.0); MONOCYTES # (AUTO) 0.5 x10^3/uL (0.3-0.8); MONOCYTES % (AUTO) 9.3 % (0.0-13.0); NEUTROPHILS # (AUTO) 3.6 x10^3/uL (2.2-4.8); NEUTROPHILS % (AUTO) 66.6 % (42.0-75.0); PLATELET COUNT 96 X10^3/uL (150.0-450.0); RED CELL DISTRIBUTION WIDTH 16.2 % (11.6-16.5); WHITE BLOOD COUNT 5.5 X10^3/uL (3.6-10.0)
[2019-05-30 05:33] LABS: ALANINE AMINOTRANSFERASE 14 Units/L (12-78); ALBUMIN 2.8 g/dL (3.4-5.0); ALKALINE PHOSPHATASE 82 Units/L (46-116); ASPARTATE AMINO TRANSFERASE 19 Units/L (15-37); BLOOD UREA NITROGEN 37 mg/dL (7-18); CALCIUM 9.1 mg/dL (8.5-10.1); CARBON DIOXIDE 33.7 mmol/L (21-32); CHLORIDE 106 mmol/L (98-107); COR CA(FOR HYPOALB) 10.1 mg/dL (8.5-10.1); CREATININE 1.27 mg/dL (0.55-1.02); SODIUM 143 mmol/L (136-145); TOTAL PROTEIN 5.5 g/dL (6.4-8.2); eGFR NON BLACK RACES 43 (>60)
[2019-05-30] MEDS: CARAFATE PO SCH ×4 (05:49→20:57)
[2019-05-30] MEDS: TAMBOCOR PO SCH ×2 (05:49→17:35)
[2019-05-30] MEDS ORDERED: NS 100 ML IV + SPIKE MINIBAG* 100 ML ONE (08:55)
[2019-05-30] MEDS: XARELTO PO SCH (08:57)
[2019-05-30] MEDS: PROTONIX TAB 40 MG PO SCH (08:57)
[2019-05-30] MEDS: TEFLARO IV SCH ×2 (08:57→20:57)
[2019-05-30] MEDS: CORDARONE TAB 200 MG PO SCH (08:58)
[2019-05-30] MEDS: OSCAL+D or CALTRATE+D PO SCH ×2 (08:58→20:57)
[2019-05-30] MEDS: LASIX PO SCH (08:58)
[2019-05-30] MEDS: SINGULAIR TAB 10 MG PO SCH (08:58)
[2019-05-30] MEDS: COREG TAB 3.125 MG PO SCH ×2 (08:58→20:57)
[2019-05-30] MEDS: K-DUR TAB 20 MEQ PO SCH (08:59)
[2019-05-30] MEDS: MILK OF MAGNESIA PO SCH ×2 (08:59→20:59)
[2019-05-30] MEDS: SYNTHROID 25 mcg TAB PO SCH (08:59)
[2019-05-30] MEDS: MIRABEGRON 50 MG PO SCH (09:06)
[2019-05-30] MEDS: NORCO 5/325 MG TAB PO PRN (11:11)
--- NOTE | 2019-05-30 17:44 | PCM.PROG ---
Progress Note - Progress Note for Day of Date of Exam: 05/30/19 - Subjective Subjective: 78 WF ADMITTED TO [facility] ON [facility]/26 FOR PT AND IV ATBX. PT IS COOPERATIVE WITH PHYSICAL THERAPY. PT CO INCREASED ARTHRITIS PAIN THIS AM. PT STATES SHE DOES NOT LIKE TO TAKE MUCH NORCO DUE TO INCREASED CONSTIPATION. HOWEVER PT HAS BEEN ON BOWEL REGIMEN AND CO DIARRHEA LAST PM. PT HAS COMPLETED IV ATBX THERAPY, TEFLARO DC TO DAY. WOUND TO LLE SIGNIFICANTLY IMPROVED, IMPROVED BILATERAL LOWER EXTREMITY EDEMA, CONTINUE PHYSICAL THERAPY - Past Medical Family Social History Past Med/Fam/Surg Hx: No changes since H&P Allergies: Allergies No Known Drug Allergies Allergy (Verified 03/14/19 15:25) - Review of Systems ROS: No change since H&P - Vital Signs and I&O's Vital Signs: Temperature 98 F Pulse Rate [Left Radial] 69 Respiratory Rate 18 Blood Pressure [Left Arm] 117/56 Blood Pressure [Right Arm] 98/55 Blood Pressure 127/50 O2 Sat by Pulse Oximetry 93 Intake and Output: Intake & Output 05/28/19 05/29/19 05/30/19 05/31/19 11:59 11:59 11:59 11:59 Intake Total 820 / 820 920 / 920 1290 / 1290 480 / 480 Balance 820 / 820 920 / 920 1290 / 1290 480 / 480 - Physical Exam Oriented: Normal Eyes: Normal Ear: Normal Nose: Normal Throat: Normal Respiratory: Normal Cardiovascular: Normal : Normal Auscultation: Bowel Sounds: Normal Tenderness: Normal Skin: Wound Musculoskeletal: Right, Left, Shoulder, Back:Lumbar Psychiatric: Normal Mood Description: Calm Speech Pattern: Clear, Appropriate - Laboratory and Diagnostics Result Diagrams: 05/30/19 04:40 05/30/19 04:40 Labs: Laboratory WBC 5.5 X10^3/uL (3.6-10.0) 05/30/19 04:40 RBC 3.50 X10^6/uL (3.5-5.4) 05/30/19 04:40 Hgb 10.4 g/dL (12.0-16.0) L 05/30/19 04:40 Hct 31.0 % (36.0-47.0) L 05/30/19 04:40 MCV 88.5 fL (80.0-100.0) 05/30/19 04:40 MCH 29.6 pg (27.0-34.0) 05/30/19 04:40 MCHC 33.4 g/dL (33.0-35.0) 05/30/19 04:40 RDW 16.2 % (11.6-16.5) 05/30/19 04:40 Plt Count 96 X10^3/uL (150.0-450.0) L 05/30/19 04:40 MPV 9.7 fL (7.4-11.0) 05/30/19 04:40 Neut % (Auto) 66.6 % (42.0-75.0) 05/30/19 04:40 Lymph % (Auto) 22.7 % (21.0-51.0) 05/30/19 04:40 [place] % (Auto) 9.3 % (0.0-13.0) 05/30/19 04:40 Eos % (Auto) 0.6 % (0.9-2.9) L 05/30/19 04:40 Baso % (Auto) 0.8 % (0.2-1.0) 05/30/19 04:40 Neut # (Auto) 3.6 x10^3/uL (2.2-4.8) 05/30/19 04:40 Lymph # (Auto) 1.2 X10^3/uL (1.3-2.9) L 05/30/19 04:40 [place] # (Auto) 0.5 x10^3/uL (0.3-0.8) 05/30/19 04:40 Eos # (Auto) 0.0 x10^3/uL (0.0-0.2) 05/30/19 04:40 Baso # (Auto) 0.0 X10^3/uL (0.0-0.1) 05/30/19 04:40 Absolute Nucleated RBC 0.1 /100WBC 05/30/19 04:40 Sodium 143 mmol/L (136-145) 05/30/19 04:40 Corrected Sodium TNP 05/30/19 04:40 Potassium 4.2 mmol/L (3.5-5.1) 05/30/19 04:40 Chloride 106 mmol/L (98-107) 05/30/19 04:40 Carbon Dioxide 33.7 mmol/L (21-32) H 05/30/19 04:40 BUN 37 mg/dL (7-18) H 05/30/19 04:40 Creatinine 1.27 mg/dL (0.55-1.02) H 05/30/19 04:40 Est GFR (MDRD) Af Amer 52 (>60) L 05/30/19 04:40 Est GFR (MDRD) Non-Af 43 (>60) L 05/30/19 04:40 Glucose 97 mg/dL (65-99) 05/30/19 04:40 Calcium 9.1 mg/dL (8.5-10.1) 05/30/19 04:40 Corrected Calcium 10.1 mg/dL (8.5-10.1) 05/30/19 04:40 Total Bilirubin 0.30 mg/dL (0.2-1.0) 05/30/19 04:40 AST 19 Units/L (15-37) 05/30/19 04:40 ALT 14 Units/L (12-78) 05/30/19 04:40 Alkaline Phosphatase 82 Units/L (46-116) 05/30/19 04:40 Total Protein 5.5 g/dL (6.4-8.2) L 05/30/19 04:40 Albumin 2.8 g/dL (3.4-5.0) L 05/30/19 04:40 Globulin 2.7 g/dL (2.5-4.5) 05/30/19 04:40 Albumin/Globulin Ratio 1.0 Ratio (1.1-2.1) L 05/30/19 04:40 - Plan (1) Weakness Status: Acute Plan: [facility], IV ATBX FOR WOUND. CONTINUE CURRENT MEDICATION REGIMEN. PAIN CONTROL. ROUTINE LABS (2) Shoulder pain, bilateral Status: Chronic (3) CAD (coronary artery disease) Status: Chronic (4) HTN (hypertension) Status: Chronic (5) Atrial fibrillation Status: Chronic (6) Cellulitis of foot, left Status: Acute (7) CHF (congestive heart failure) Status: Acute
[2019-05-30] MEDS ORDERED: NS 100 ML IV 100 ML ONE (20:18)
[2019-05-30] MEDS: ZANTAC PO SCH (20:56)
[2019-05-30] MEDS: CRESTOR TAB 10 MG PO SCH (20:56)
[2019-05-30] MEDS: LYRICA CAP 150 MG PO SCH (20:57)
[2019-05-30] MEDS: COLACE CAP 100 MG PO SCH (20:57)
[2019-05-30] MEDS: MIRALAX POWDER (1 DOSE 17 G) PO SCH (20:59)
[2019-05-30] MEDS ORDERED: NS 1000 ML 1,000 ML ONE (21:23)
[2019-05-31] MEDS: TAMBOCOR PO SCH ×2 (05:31→19:00)
[2019-05-31] MEDS: CARAFATE PO SCH ×4 (05:31→20:48)
[2019-05-31] MEDS: PROTONIX TAB 40 MG PO SCH (08:44)
[2019-05-31] MEDS: LASIX PO SCH (08:44)
[2019-05-31] MEDS: OSCAL+D or CALTRATE+D PO SCH ×2 (08:44→20:48)
[2019-05-31] MEDS: SINGULAIR TAB 10 MG PO SCH (08:45)
[2019-05-31] MEDS: XARELTO PO SCH (08:45)
[2019-05-31] MEDS: COREG TAB 3.125 MG PO SCH ×2 (08:45→20:49)
[2019-05-31] MEDS: SYNTHROID 25 mcg TAB PO SCH (08:45)
[2019-05-31] MEDS: CORDARONE TAB 200 MG PO SCH (08:47)
[2019-05-31] MEDS: MIRABEGRON 50 MG PO SCH (08:48)
[2019-05-31] MEDS: K-DUR TAB 20 MEQ PO SCH (08:51)
[2019-05-31] MEDS: MILK OF MAGNESIA PO SCH ×2 (08:51→20:48)
[2019-05-31] MEDS: NORCO 5/325 MG TAB PO PRN (11:35)
[2019-05-31] MEDS: TEFLARO IV SCH (16:21)
[2019-05-31] MEDS: ZANTAC PO SCH (20:48)
[2019-05-31] MEDS: CRESTOR TAB 10 MG PO SCH (20:48)
[2019-05-31] MEDS: COLACE CAP 100 MG PO SCH (20:48)
[2019-05-31] MEDS: LYRICA CAP 150 MG PO SCH (20:48)
[2019-05-31] MEDS: MIRALAX POWDER (1 DOSE 17 G) PO SCH (20:49)
[2019-06-01] MEDS: CARAFATE PO SCH ×4 (05:30→21:42)
[2019-06-01] MEDS: TAMBOCOR PO SCH ×2 (05:31→20:30)
[2019-06-01 05:45] LABS: BASOPHILS % (AUTO) 0.9 % (0.2-1.0); EOSINOPHILS # (AUTO) 0.1 x10^3/uL (0.0-0.2); HEMATOCRIT 29.8 % (36.0-47.0); LYMPHOCYTES # (AUTO) 1.2 X10^3/uL (1.3-2.9); LYMPHOCYTES % (AUTO) 27.8 % (21.0-51.0); MEAN CORPUSCULAR HEMOGLOBIN 29.7 pg (27.0-34.0); MEAN CORPUSCULAR HGB CONC 33.5 g/dL (33.0-35.0); MEAN CORPUSCULAR VOLUME 88.6 fL (80.0-100.0); MEAN PLATELET VOLUME 9.6 fL (7.4-11.0); MONOCYTES # (AUTO) 0.5 x10^3/uL (0.3-0.8); MONOCYTES % (AUTO) 11.1 % (0.0-13.0); NEUTROPHILS # (AUTO) 2.5 x10^3/uL (2.2-4.8); NEUTROPHILS % (AUTO) 58.2 % (42.0-75.0); PLATELET COUNT 87 X10^3/uL (150.0-450.0); RED BLOOD COUNT 3.36 X10^6/uL (3.5-5.4); WHITE BLOOD COUNT 4.3 X10^3/uL (3.6-10.0)
[2019-06-01 05:54] LABS: ALANINE AMINOTRANSFERASE 14 Units/L (12-78); ALBUMIN 2.8 g/dL (3.4-5.0); ALKALINE PHOSPHATASE 86 Units/L (46-116); ASPARTATE AMINO TRANSFERASE 18 Units/L (15-37); BLOOD UREA NITROGEN 39 mg/dL (7-18); CALCIUM 8.6 mg/dL (8.5-10.1); CARBON DIOXIDE 33.6 mmol/L (21-32); CHLORIDE 105 mmol/L (98-107); COR CA(FOR HYPOALB) 9.6 mg/dL (8.5-10.1); CREATININE 1.37 mg/dL (0.55-1.02); SODIUM 144 mmol/L (136-145); TOTAL PROTEIN 5.5 g/dL (6.4-8.2); eGFR NON BLACK RACES 40 (>60)
[2019-06-01] MEDS: MILK OF MAGNESIA PO SCH ×2 (08:55→21:42)
[2019-06-01] MEDS: OSCAL+D or CALTRATE+D PO SCH ×2 (08:56→21:41)
[2019-06-01] MEDS: CORDARONE TAB 200 MG PO SCH (08:56)
[2019-06-01] MEDS: MIRABEGRON 50 MG PO SCH (08:56)
[2019-06-01] MEDS: LASIX PO SCH (08:56)
[2019-06-01] MEDS: XARELTO PO SCH (08:56)
[2019-06-01] MEDS: SINGULAIR TAB 10 MG PO SCH (08:56)
[2019-06-01] MEDS: COREG TAB 3.125 MG PO SCH ×2 (08:56→21:42)
[2019-06-01] MEDS: PROTONIX TAB 40 MG PO SCH (08:56)
[2019-06-01] MEDS: SYNTHROID 25 mcg TAB PO SCH (08:56)
[2019-06-01] MEDS: K-DUR TAB 20 MEQ PO SCH (08:59)
[2019-06-01] MEDS: ZANTAC PO SCH (21:41)
[2019-06-01] MEDS: CRESTOR TAB 10 MG PO SCH (21:42)
[2019-06-01] MEDS: LYRICA CAP 150 MG PO SCH (21:42)
[2019-06-01] MEDS: COLACE CAP 100 MG PO SCH (21:42)
[2019-06-01] MEDS: MIRALAX POWDER (1 DOSE 17 G) PO SCH (21:42)
[2019-06-01] MEDS: NORCO 5/325 MG TAB PO PRN (21:47)
[2019-06-02] MEDS: CARAFATE PO SCH ×4 (06:16→21:39)
[2019-06-02] MEDS: TAMBOCOR PO SCH ×2 (06:16→18:17)
[2019-06-02] MEDS: NORCO 5/325 MG TAB PO PRN ×2 (10:24→21:39)
[2019-06-02] MEDS: PROTONIX TAB 40 MG PO SCH (10:25)
[2019-06-02] MEDS: SYNTHROID 25 mcg TAB PO SCH (10:25)
[2019-06-02] MEDS: LASIX PO SCH (10:25)
[2019-06-02] MEDS: OSCAL+D or CALTRATE+D PO SCH ×2 (10:26→21:39)
[2019-06-02] MEDS: K-DUR TAB 20 MEQ PO SCH (10:26)
[2019-06-02] MEDS: XARELTO PO SCH (10:26)
[2019-06-02] MEDS: COREG TAB 3.125 MG PO SCH ×2 (10:26→21:38)
[2019-06-02] MEDS: SINGULAIR TAB 10 MG PO SCH (10:26)
[2019-06-02] MEDS: CORDARONE TAB 200 MG PO SCH (10:27)
[2019-06-02] MEDS: MIRABEGRON 50 MG PO SCH (14:52)
[2019-06-02] MEDS: MILK OF MAGNESIA PO SCH ×2 (14:52→21:40)
--- NOTE | 2019-06-02 16:39 | CT ---
HISTORY: Fall, pain Study: CT lumbar spine without contrast Comparison: Abdomen CT 03/04/2019 Technique: Multiple axial images of the lumbar spine without the administration of IV contrast. Sagittal and coronal reformats were performed and reviewed. Dose reduction techniques including Automated Exposure Control (AEC) and adjustment of mA and kV were utilized. Findings: There is grade 1 anterolisthesis of L5 on S1 due to facet degenerative changes. No pars interarticularis defect is identified. There is osteopenia noted which reduces sensitivity to detect nondisplaced fractures. Vertebral body heights are preserved. There is advanced multilevel disc space narrowing with spondylosis and vacuum phenomenon. There arm multilevel broad-based disc bulges and facet arthropathy resulting in moderate to severe spinal canal stenosis at L4-5 and moderate stenosis at L5-S1 and varying degrees of foraminal stenosis throughout the lumbar spine. The visualized bony pelvis appears intact. There is vascular plaque throughout the aorta. Stable partially visualized hypodense right renal mass with thin septations suggesting a mildly complex cyst. IMPRESSION: 1. Osteopenia with multilevel degenerative changes as described including moderate to severe spinal canal stenosis at L4-5 and L5-S1. 2. Grade 1 anterolisthesis of L5 on S1 due to facet degenerative changes. 3. No acute osseous abnormality identified. Reported By:
--- NOTE | 2019-06-02 16:41 | CT ---
HISTORY: Pain after fall Study: CT pelvis without contrast Comparison: Abdomen CT 03/04/2019 Technique: Multiple axial images of pelvis were obtained without the administration of IV contrast. Dose reduction techniques including Automated Exposure Control (AEC) and adjustment of mA and kV were utilized. Findings: There is osteopenia noted which reduces sensitivity to detect nondisplaced fractures. There are degenerative changes of the lumbosacral spine and bilateral hip joints well as involving the sacroiliac joints and pubic symphysis. No displaced fracture is identified. The urinary bladder is unremarkable. There is vascular plaque throughout the aorta and branch vessels with ectasia of the bilateral common iliac arteries up to 1.8 cm. Stable partially visualized hypodense right renal mass with thin calcified septation suggesting mildly complex cyst. IMPRESSION: 1. Osteopenia and degenerative changes as described without acute osseous abnormality. Reported By:
--- NOTE | 2019-06-02 17:33 | PCM.PROG ---
Progress Note - Progress Note for Day of Date of Exam: 06/02/19 - Subjective Subjective: 78 WF ADMITTED TO [facility]/26 FOR PT AND IV ATBX. PT IS COOPERATIVE WITH PHYSICAL THERAPY. PT CO INCREASED ARTHRITIS PAIN THIS AM. PT STATES SHE DOES NOT LIKE TO TAKE MUCH NORCO DUE TO INCREASED CONSTIPATION. PT AND NURSING STAFF REPORTS PATIENT WAS WALKING WITH ASSITANCE THIS AM AND LEGS BECAME WEAK AND ATTEMPTING TO GET PT IN BEDSIDE CHAIR SHE SLIDE DOWN TO FLOOR GUIDED BY NURSING STAFF, WITHOUT COMPLAINTS OF INCREASED PAIN OR INJURY, CT L SPINE AND PELVIS OBTAINED TO R/O NEW FRACTURE OR ACUTE INJURY. WOUND TO LLE SIGNIFICANTLY IMPROVED, IMPROVED BILATERAL LOWER EXTREMITY EDEMA, CONTINUE PHYSICAL THERAPY - Past Medical Family Social History Past Med/Fam/Surg Hx: No changes since H&P Allergies: Allergies No Known Drug Allergies Allergy (Verified 03/14/19 15:25) - Review of Systems ROS: No change since H&P - Vital Signs and I&O's Vital Signs: Temperature 98.3 F Pulse Rate [Left Radial] 74 Respiratory Rate 20 Blood Pressure [Left Arm] 134/60 Blood Pressure [Right Arm] 108/71 Blood Pressure 127/50 O2 Sat by Pulse Oximetry 90 Intake and Output: Intake & Output 05/31/19 06/01/19 06/02/19 06/03/19 11:59 11:59 11:59 11:59 Intake Total 1190 / 1190 940 / 940 650 / 650 480 / 480 Balance 1190 / 1190 940 / 940 650 / 650 480 / 480 - Physical Exam Oriented: Normal Eyes: Normal Ear: Normal Nose: Normal Throat: Normal Respiratory: Normal Cardiovascular: Normal : Normal Auscultation: Bowel Sounds: Normal Tenderness: Normal Skin: Wound Musculoskeletal: Right, Left, Shoulder, Knee, Back:Lumbar Psychiatric: Normal Mood Description: Calm Speech Pattern: Clear, Appropriate - Laboratory and Diagnostics Result Diagrams: 06/01/19 04:53 06/01/19 04:53 Labs: Laboratory WBC 4.3 X10^3/uL (3.6-10.0) 06/01/19 04:53 RBC 3.36 X10^6/uL (3.5-5.4) L 06/01/19 04:53 Hgb 10.0 g/dL (12.0-16.0) L 06/01/19 04:53 Hct 29.8 % (36.0-47.0) L 06/01/19 04:53 MCV 88.6 fL (80.0-100.0) 06/01/19 04:53 MCH 29.7 pg (27.0-34.0) 06/01/19 04:53 MCHC 33.5 g/dL (33.0-35.0) 06/01/19 04:53 RDW 16.0 % (11.6-16.5) 06/01/19 04:53 Plt Count 87 X10^3/uL (150.0-450.0) L 06/01/19 04:53 MPV 9.6 fL (7.4-11.0) 06/01/19 04:53 Neut % (Auto) 58.2 % (42.0-75.0) 06/01/19 04:53 Lymph % (Auto) 27.8 % (21.0-51.0) 06/01/19 04:53 [place] % (Auto) 11.1 % (0.0-13.0) 06/01/19 04:53 Eos % (Auto) 2.0 % (0.9-2.9) 06/01/19 04:53 Baso % (Auto) 0.9 % (0.2-1.0) 06/01/19 04:53 Neut # (Auto) 2.5 x10^3/uL (2.2-4.8) 06/01/19 04:53 Lymph # (Auto) 1.2 X10^3/uL (1.3-2.9) L 06/01/19 04:53 [place] # (Auto) 0.5 x10^3/uL (0.3-0.8) 06/01/19 04:53 Eos # (Auto) 0.1 x10^3/uL (0.0-0.2) 06/01/19 04:53 Baso # (Auto) 0.0 X10^3/uL (0.0-0.1) 06/01/19 04:53 Absolute Nucleated RBC 0.2 /100WBC 06/01/19 04:53 Sodium 144 mmol/L (136-145) 06/01/19 04:53 Corrected Sodium TNP 06/01/19 04:53 Potassium 4.6 mmol/L (3.5-5.1) 06/01/19 04:53 Chloride 105 mmol/L (98-107) 06/01/19 04:53 Carbon Dioxide 33.6 mmol/L (21-32) H 06/01/19 04:53 BUN 39 mg/dL (7-18) H 06/01/19 04:53 Creatinine 1.37 mg/dL (0.55-1.02) H 06/01/19 04:53 Est GFR (MDRD) Af Amer 48 (>60) L 06/01/19 04:53 Est GFR (MDRD) Non-Af 40 (>60) L 06/01/19 04:53 Glucose 93 mg/dL (65-99) 06/01/19 04:53 Calcium 8.6 mg/dL (8.5-10.1) 06/01/19 04:53 Corrected Calcium 9.6 mg/dL (8.5-10.1) 06/01/19 04:53 Total Bilirubin 0.40 mg/dL (0.2-1.0) 06/01/19 04:53 AST 18 Units/L (15-37) 06/01/19 04:53 ALT 14 Units/L (12-78) 06/01/19 04:53 Alkaline Phosphatase 86 Units/L (46-116) 06/01/19 04:53 Total Protein 5.5 g/dL (6.4-8.2) L 06/01/19 04:53 Albumin 2.8 g/dL (3.4-5.0) L 06/01/19 04:53 Globulin 2.7 g/dL (2.5-4.5) 06/01/19 04:53 Albumin/Globulin Ratio 1.0 Ratio (1.1-2.1) L 06/01/19 04:53 - Plan (1) Weakness Status: Acute Plan: [facility],. CONTINUE CURRENT MEDICATION REGIMEN. PAIN CONTROL. ROUTINE LABS (2) Shoulder pain, bilateral Status: Chronic (3) CAD (coronary artery disease) Status: Chronic (4) HTN (hypertension) Status: Chronic (5) Atrial fibrillation Status: Chronic (6) Cellulitis of foot, left Status: Acute (7) CHF (congestive heart failure) Status: Acute
--- NOTE | 2019-06-02 19:26 | RAD ---
Right knee two views Indication: Pain after fall Findings: There is no cortical lucency or malalignment. Remodeling in the tip of the tibia arthroplasty is noted, which a proces the anterior lateral cortex. No effusion seen. Impression: 1. No acute fracture. 2. Postsurgical changes, osteopenia and vascular plaque 3. Remodeling of the cortex laterally and anteriorly at the distal stem. Dedicated foreleg radiographs are recommended. Reported By:
[2019-06-02] MEDS: ZANTAC PO SCH (21:38)
[2019-06-02] MEDS: LYRICA CAP 150 MG PO SCH (21:38)
[2019-06-02] MEDS: CRESTOR TAB 10 MG PO SCH (21:39)
[2019-06-02] MEDS: COLACE CAP 100 MG PO SCH (21:40)
[2019-06-02] MEDS: MIRALAX POWDER (1 DOSE 17 G) PO SCH (21:41)
[2019-06-03] MEDS: TAMBOCOR PO SCH ×2 (05:38→17:32)
[2019-06-03] MEDS: CARAFATE PO SCH ×4 (05:38→21:54)
[2019-06-03 06:13] LABS: EOSINOPHILS # (AUTO) 0.1 x10^3/uL (0.0-0.2); EOSINOPHILS % (AUTO) 1.6 % (0.9-2.9); HEMATOCRIT 31.7 % (36.0-47.0); HEMOGLOBIN 10.7 g/dL (12.0-16.0); LYMPHOCYTES # (AUTO) 1.1 X10^3/uL (1.3-2.9); LYMPHOCYTES % (AUTO) 21.5 % (21.0-51.0); MEAN CORPUSCULAR HEMOGLOBIN 29.6 pg (27.0-34.0); MEAN CORPUSCULAR HGB CONC 33.6 g/dL (33.0-35.0); MEAN CORPUSCULAR VOLUME 87.9 fL (80.0-100.0); MEAN PLATELET VOLUME 9.1 fL (7.4-11.0); MONOCYTES # (AUTO) 0.5 x10^3/uL (0.3-0.8); MONOCYTES % (AUTO) 10.7 % (0.0-13.0); NEUTROPHILS # (AUTO) 3.3 x10^3/uL (2.2-4.8); NEUTROPHILS % (AUTO) 65.2 % (42.0-75.0); PLATELET COUNT 94 X10^3/uL (150.0-450.0); RED CELL DISTRIBUTION WIDTH 15.6 % (11.6-16.5); WHITE BLOOD COUNT 5.1 X10^3/uL (3.6-10.0)
[2019-06-03 06:34] LABS: ALANINE AMINOTRANSFERASE 18 Units/L (12-78); ALKALINE PHOSPHATASE 100 Units/L (46-116); ASPARTATE AMINO TRANSFERASE 20 Units/L (15-37); BLOOD UREA NITROGEN 38 mg/dL (7-18); CALCIUM 8.9 mg/dL (8.5-10.1); CARBON DIOXIDE 33.5 mmol/L (21-32); CHLORIDE 101 mmol/L (98-107); COR CA(FOR HYPOALB) 9.7 mg/dL (8.5-10.1); CREATININE 1.56 mg/dL (0.55-1.02); SODIUM 140 mmol/L (136-145); TOTAL PROTEIN 6.1 g/dL (6.4-8.2); eGFR NON BLACK RACES 34 (>60)
[2019-06-03] MEDS: COREG TAB 3.125 MG PO SCH ×2 (10:05→21:54)
[2019-06-03] MEDS: PROTONIX TAB 40 MG PO SCH (10:06)
[2019-06-03] MEDS: SYNTHROID 25 mcg TAB PO SCH (10:07)
[2019-06-03] MEDS: XARELTO PO SCH (10:07)
[2019-06-03] MEDS: LASIX PO SCH (10:07)
[2019-06-03] MEDS: SINGULAIR TAB 10 MG PO SCH (10:07)
[2019-06-03] MEDS: OSCAL+D or CALTRATE+D PO SCH ×2 (10:07→21:54)
[2019-06-03] MEDS: K-DUR TAB 20 MEQ PO SCH (10:08)
[2019-06-03] MEDS: CORDARONE TAB 200 MG PO SCH (10:08)
[2019-06-03] MEDS: MIRABEGRON 50 MG PO SCH (10:08)
[2019-06-03] MEDS: MILK OF MAGNESIA PO SCH ×2 (10:08→21:55)
[2019-06-03] MEDS: NORCO 5/325 MG TAB PO PRN (21:54)
[2019-06-03] MEDS: LYRICA CAP 150 MG PO SCH (21:54)
[2019-06-03] MEDS: ZANTAC PO SCH (21:54)
[2019-06-03] MEDS: CRESTOR TAB 10 MG PO SCH (21:54)
[2019-06-03] MEDS: COLACE CAP 100 MG PO SCH (21:55)
[2019-06-03] MEDS: MIRALAX POWDER (1 DOSE 17 G) PO SCH (21:55)
[2019-06-04] MEDS: TAMBOCOR PO SCH ×2 (05:36→18:49)
[2019-06-04] MEDS: CARAFATE PO SCH ×4 (05:36→20:37)
[2019-06-04] MEDS: OSCAL+D or CALTRATE+D PO SCH ×2 (10:07→20:37)
[2019-06-04] MEDS: NORCO 5/325 MG TAB PO PRN ×2 (10:08→20:36)
[2019-06-04] MEDS: SYNTHROID 25 mcg TAB PO SCH (10:08)
[2019-06-04] MEDS: CORDARONE TAB 200 MG PO SCH (10:08)
[2019-06-04] MEDS: SINGULAIR TAB 10 MG PO SCH (10:09)
[2019-06-04] MEDS: K-DUR TAB 20 MEQ PO SCH (10:09)
[2019-06-04] MEDS: LASIX PO SCH (10:09)
[2019-06-04] MEDS: PROTONIX TAB 40 MG PO SCH (10:09)
[2019-06-04] MEDS: COREG TAB 3.125 MG PO SCH ×2 (10:09→20:37)
[2019-06-04] MEDS: XARELTO PO SCH (10:09)
[2019-06-04] MEDS: MILK OF MAGNESIA PO SCH ×2 (10:10→20:38)
[2019-06-04] MEDS: MIRABEGRON 50 MG PO SCH (10:10)
[2019-06-04] MEDS: ZANTAC PO SCH (20:36)
[2019-06-04] MEDS: CRESTOR TAB 10 MG PO SCH (20:36)
[2019-06-04] MEDS: LYRICA CAP 150 MG PO SCH (20:36)
[2019-06-04] MEDS: COLACE CAP 100 MG PO SCH (20:37)
[2019-06-04] MEDS: MIRALAX POWDER (1 DOSE 17 G) PO SCH (20:38)
[2019-06-05] MEDS: TAMBOCOR PO SCH (05:37)
[2019-06-05] MEDS: CARAFATE PO SCH ×3 (05:38→17:09)
[2019-06-05] MEDS: OSCAL+D or CALTRATE+D PO SCH (09:36)
[2019-06-05] MEDS: SYNTHROID 25 mcg TAB PO SCH (09:37)
[2019-06-05] MEDS: CORDARONE TAB 200 MG PO SCH (09:40)
[2019-06-05] MEDS: LASIX PO SCH (09:41)
[2019-06-05] MEDS: XARELTO PO SCH (09:41)
[2019-06-05] MEDS: SINGULAIR TAB 10 MG PO SCH (09:41)
[2019-06-05] MEDS: COREG TAB 3.125 MG PO SCH (09:41)
[2019-06-05] MEDS: K-DUR TAB 20 MEQ PO SCH (09:41)
[2019-06-05] MEDS: PROTONIX TAB 40 MG PO SCH (09:41)
[2019-06-05] MEDS: MIRABEGRON 50 MG PO SCH (09:42)
[2019-06-05] MEDS: MILK OF MAGNESIA PO SCH (09:42)
--- NOTE | 2019-06-05 11:12 | PCM.PROG ---
Progress Note - Progress Note for Day of Date of Exam: 06/05/19 - Subjective Subjective: 78 WF ADMITTED TO [facility]/26 FOR PT AND IV ATBX. PT IS COOPERATIVE WITH PHYSICAL THERAPY. PT CO INCREASED ARTHRITIS PAIN THIS AM. PT STATES SHE DOES NOT LIKE TO TAKE MUCH NORCO DUE TO INCREASED CONSTIPATION. PT AND NURSING STAFF REPORTS PATIENT WAS WALKING WITH ASSITANCE THIS AM AND LEGS BECAME WEAK AND ATTEMPTING TO GET PT IN BEDSIDE CHAIR SHE SLIDE DOWN TO FLOOR GUIDED BY NURSING STAFF, WITHOUT COMPLAINTS OF INCREASED PAIN OR INJURY, CT L SPINE AND PELVIS OBTAINED TO R/O NEW FRACTURE OR ACUTE INJURY. WOUND TO LLE RESOLVED, IMPROVED BILATERAL LOWER EXTREMITY EDEMA, CONTINUE PHYSICAL THERAPY - Past Medical Family Social History Past Med/Fam/Surg Hx: No changes since H&P Allergies: Allergies No Known Drug Allergies Allergy (Verified 03/14/19 15:25) - Review of Systems ROS: No change since H&P - Vital Signs and I&O's Vital Signs: Temperature 97.8 F Pulse Rate [Left Radial] 69 Respiratory Rate 20 Blood Pressure [Left Arm] 115/57 Blood Pressure [Right Arm] 108/71 Blood Pressure 127/50 O2 Sat by Pulse Oximetry 96 Intake and Output: Intake & Output 06/02/19 06/03/19 06/04/19 06/05/19 11:59 11:59 11:59 11:59 Intake Total 650 / 650 880 / 880 930 / 930 1620 / 1620 Balance 650 / 650 880 / 880 930 / 930 1620 / 1620 - Physical Exam Oriented: Normal Eyes: Normal Ear: Normal Nose: Normal Throat: Normal Respiratory: Normal Cardiovascular: Normal : Normal Auscultation: Bowel Sounds: Normal Tenderness: Normal Skin: Wound Musculoskeletal: Right, Left, Shoulder, Knee, Back:Lumbar Psychiatric: Normal Mood Description: Calm Speech Pattern: Clear, Appropriate - Laboratory and Diagnostics Result Diagrams: 06/03/19 05:55 06/03/19 05:55 Labs: Laboratory WBC 5.1 X10^3/uL (3.6-10.0) 06/03/19 05:55 RBC 3.60 X10^6/uL (3.5-5.4) 06/03/19 05:55 Hgb 10.7 g/dL (12.0-16.0) L 06/03/19 05:55 Hct 31.7 % (36.0-47.0) L 06/03/19 05:55 MCV 87.9 fL (80.0-100.0) 06/03/19 05:55 MCH 29.6 pg (27.0-34.0) 06/03/19 05:55 MCHC 33.6 g/dL (33.0-35.0) 06/03/19 05:55 RDW 15.6 % (11.6-16.5) 06/03/19 05:55 Plt Count 94 X10^3/uL (150.0-450.0) L 06/03/19 05:55 MPV 9.1 fL (7.4-11.0) 06/03/19 05:55 Neut % (Auto) 65.2 % (42.0-75.0) 06/03/19 05:55 Lymph % (Auto) 21.5 % (21.0-51.0) 06/03/19 05:55 [place] % (Auto) 10.7 % (0.0-13.0) 06/03/19 05:55 Eos % (Auto) 1.6 % (0.9-2.9) 06/03/19 05:55 Baso % (Auto) 1.0 % (0.2-1.0) 06/03/19 05:55 Neut # (Auto) 3.3 x10^3/uL (2.2-4.8) 06/03/19 05:55 Lymph # (Auto) 1.1 X10^3/uL (1.3-2.9) L 06/03/19 05:55 [place] # (Auto) 0.5 x10^3/uL (0.3-0.8) 06/03/19 05:55 Eos # (Auto) 0.1 x10^3/uL (0.0-0.2) 06/03/19 05:55 Baso # (Auto) 0.0 X10^3/uL (0.0-0.1) 06/03/19 05:55 Absolute Nucleated RBC 0.0 /100WBC 06/03/19 05:55 Sodium 140 mmol/L (136-145) 06/03/19 05:55 Corrected Sodium TNP 06/03/19 05:55 Potassium 4.3 mmol/L (3.5-5.1) 06/03/19 05:55 Chloride 101 mmol/L (98-107) 06/03/19 05:55 Carbon Dioxide 33.5 mmol/L (21-32) H 06/03/19 05:55 BUN 38 mg/dL (7-18) H 06/03/19 05:55 Creatinine 1.56 mg/dL (0.55-1.02) H 06/03/19 05:55 Est GFR (MDRD) Af Amer 41 (>60) L 06/03/19 05:55 Est GFR (MDRD) Non-Af 34 (>60) L 06/03/19 05:55 Glucose 105 mg/dL (65-99) H 06/03/19 05:55 Calcium 8.9 mg/dL (8.5-10.1) 06/03/19 05:55 Corrected Calcium 9.7 mg/dL (8.5-10.1) 06/03/19 05:55 Total Bilirubin 0.40 mg/dL (0.2-1.0) 06/03/19 05:55 AST 20 Units/L (15-37) 06/03/19 05:55 ALT 18 Units/L (12-78) 06/03/19 05:55 Alkaline Phosphatase 100 Units/L (46-116) 06/03/19 05:55 Total Protein 6.1 g/dL (6.4-8.2) L 06/03/19 05:55 Albumin 3.0 g/dL (3.4-5.0) L 06/03/19 05:55 Globulin 3.1 g/dL (2.5-4.5) 06/03/19 05:55 Albumin/Globulin Ratio 1.0 Ratio (1.1-2.1) L 06/03/19 05:55 - Plan (1) Weakness Status: Acute Plan: [facility],. CONTINUE CURRENT MEDICATION REGIMEN. PAIN CONTROL. ROUTINE LABS (2) Shoulder pain, bilateral Status: Chronic (3) CAD (coronary artery disease) Status: Chronic (4) HTN (hypertension) Status: Chronic (5) Atrial fibrillation Status: Chronic (6) Cellulitis of foot, left Status: Acute (7) CHF (congestive heart failure) Status: Acute
[2019-06-05 11:13] VITALS: BP 104/51
[2019-06-05] MEDS ORDERED: ZANTAC PO ONE (21:00)
[2019-06-05] MEDS ORDERED: MIRALAX POWDER (1 DOSE 17 G) PO ONE (21:00)
[2019-06-05] MEDS ORDERED: COLACE CAP 100 MG PO ONE (21:00)
[2019-06-05] MEDS ORDERED: LYRICA CAP 150 MG PO ONE (21:00)
[2019-06-05] MEDS ORDERED: OSCAL+D or CALTRATE+D PO ONE (21:00)
[2019-06-05] MEDS ORDERED: COREG TAB 3.125 MG PO ONE (21:00)
[2019-06-05] MEDS ORDERED: CRESTOR TAB 10 MG PO ONE (21:00)
[2019-06-05] MEDS ORDERED: RESTORIL CAP 15 MG PO ONE (21:00)
[2019-06-06] MEDS ORDERED: TAMBOCOR PO ONE ×2 (06:00→09:00)
[2019-06-06] MEDS ORDERED: CARAFATE PO ONE ×4 (06:00→21:00)
[2019-06-06] MEDS ORDERED: XARELTO PO ONE (09:00)
[2019-06-06] MEDS ORDERED: K-DUR TAB 20 MEQ PO ONE (09:00)
[2019-06-06] MEDS ORDERED: OSCAL+D or CALTRATE+D PO ONE ×2 (09:00→21:00)
[2019-06-06] MEDS ORDERED: PROTONIX TAB 40 MG PO ONE (09:00)
[2019-06-06] MEDS ORDERED: MILK OF MAGNESIA PO ONE (09:00)
[2019-06-06] MEDS ORDERED: SINGULAIR TAB 10 MG PO ONE (09:00)
[2019-06-06] MEDS ORDERED: CORDARONE TAB 200 MG PO ONE (09:00)
[2019-06-06] MEDS ORDERED: LASIX PO ONE (09:00)
[2019-06-06] MEDS ORDERED: SYNTHROID 25 mcg TAB PO ONE (09:00)
[2019-06-06] MEDS ORDERED: COREG TAB 3.125 MG PO ONE (21:00)
[2019-06-06] MEDS ORDERED: COLACE CAP 100 MG PO ONE (21:00)
[2019-06-06] MEDS ORDERED: ZANTAC PO ONE (21:00)
[2019-06-06] MEDS ORDERED: LYRICA CAP 150 MG PO ONE (21:00)
[2019-06-06] MEDS ORDERED: CRESTOR TAB 10 MG PO ONE (21:00)
[2019-06-07] MEDS ORDERED: MAALOX or MYLANTA PO ONE (01:21)
[2019-06-07] MEDS ORDERED: TAMBOCOR PO ONE (02:04)
[2019-06-07] MEDS ORDERED: CARAFATE PO ONE ×2 (02:04→10:30)
[2019-06-07] MEDS ORDERED: OSCAL+D or CALTRATE+D PO ONE (10:00)
[2019-06-07] MEDS ORDERED: XARELTO PO ONE (10:00)
[2019-06-07] MEDS ORDERED: MILK OF MAGNESIA PO ONE (10:00)
[2019-06-07] MEDS ORDERED: SINGULAIR TAB 10 MG PO ONE (10:00)
[2019-06-07] MEDS ORDERED: SYNTHROID 25 mcg TAB PO ONE (10:30)
[2019-06-07] MEDS ORDERED: CORDARONE TAB 200 MG PO ONE (10:30)
[2019-06-07] MEDS ORDERED: K-DUR TAB 20 MEQ PO ONE (10:30)
[2019-06-07] MEDS ORDERED: LASIX PO ONE (10:30)
[2019-06-07] MEDS ORDERED: PROTONIX TAB 40 MG PO ONE (10:30)
[2019-06-13 09:26] LABS: ASPARTATE AMINO TRANSFERASE 18 Units/L (15-37); BLOOD UREA NITROGEN 35 mg/dL (7-18); CALCIUM 8.2 mg/dL (8.5-10.1); CARBON DIOXIDE 32.1 mmol/L (21-32); CHLORIDE 105 mmol/L (98-107); CREATININE 1.38 mg/dL (0.55-1.02); SODIUM 144 mmol/L (136-145); eGFR NON BLACK RACES 39 (>60)
[2019-06-13 09:27] LABS: ALANINE AMINOTRANSFERASE 15 Units/L (12-78); ALBUMIN 2.6 g/dL (3.4-5.0); ALKALINE PHOSPHATASE 93 Units/L (46-116); COR CA(FOR HYPOALB) 9.3 mg/dL (8.5-10.1); TOTAL PROTEIN 5.6 g/dL (6.4-8.2); WHITE BLOOD COUNT 4.8 X10^3/uL (3.6-10.0)
[2019-06-13 09:28] LABS: BASOPHILS % (AUTO) 0.8 % (0.2-1.0); EOSINOPHILS # (AUTO) 0.1 x10^3/uL (0.0-0.2); EOSINOPHILS % (AUTO) 2.5 % (0.9-2.9); HEMATOCRIT 29.3 % (36.0-47.0); HEMOGLOBIN 9.8 g/dL (12.0-16.0); LYMPHOCYTES # (AUTO) 1.2 X10^3/uL (1.3-2.9); LYMPHOCYTES % (AUTO) 25.5 % (21.0-51.0); MEAN CORPUSCULAR HEMOGLOBIN 29.2 pg (27.0-34.0); MEAN CORPUSCULAR HGB CONC 33.5 g/dL (33.0-35.0); MEAN CORPUSCULAR VOLUME 87.2 fL (80.0-100.0); MEAN PLATELET VOLUME 9.1 fL (7.4-11.0); MONOCYTES # (AUTO) 0.6 x10^3/uL (0.3-0.8); MONOCYTES % (AUTO) 12.6 % (0.0-13.0); NEUTROPHILS # (AUTO) 2.8 x10^3/uL (2.2-4.8); NEUTROPHILS % (AUTO) 58.6 % (42.0-75.0); PLATELET COUNT 89 X10^3/uL (150.0-450.0); RED BLOOD COUNT 3.35 X10^6/uL (3.5-5.4); RED CELL DISTRIBUTION WIDTH 15.8 % (11.6-16.5)
== END 2019-06-07 14:00 | DRG 949 ==
LOC: MED/SURG 14:26
PROVIDERS: ADMIT Internal Medicine; ATTEND Internal Medicine
DX: I50.9 Heart failure, unspecified; M19.90 Unspecified osteoarthritis, unspecified site; E03.8 Other specified hypothyroidism; E66.01 Morbid (severe) obesity due to excess calories; Z51.89 Encounter for other specified aftercare; I48.91 Unspecified atrial fibrillation; R53.1 Weakness; E78.2 Mixed hyperlipidemia; R60.0 Localized edema; I25.10 Atherosclerotic heart disease of native coronary artery without angina pectoris; X58.XXXA Exposure to other specified factors, initial encounter; Y92.9 Unspecified place or not applicable; S92.322A Displaced fracture of second metatarsal bone, left foot, initial encounter for closed fracture; R06.02 Shortness of breath; J44.9 Chronic obstructive pulmonary disease, unspecified; L03.116 Cellulitis of left lower limb; I11.0 Hypertensive heart disease with heart failure; R26.89 Other abnormalities of gait and mobility; Z79.01 Long term (current) use of anticoagulants; S91.302A Unspecified open wound, left foot, initial encounter
CPT/HCPCS: 36415; 72131; 72192; 73560; 80053; 85025; 94760; 97110; 97116; 97162; 97166; 97530; 97535; A4222; Q0169; J0712; J2920; J7030; J7050

== ENCOUNTER 2020-09-06 16:41 | Inpatient (IN) ==
[2020-09-06 18:36] LABS: BASOPHILS % (AUTO) 0.9 % (0.2-1.0); EOSINOPHILS % (AUTO) 0.7 % (0.9-2.9); HEMATOCRIT 33.9 % (36.0-47.0); HEMOGLOBIN 10.7 g/dL (12.0-16.0); LYMPHOCYTES # (AUTO) 0.6 X10^3/uL (1.3-2.9); LYMPHOCYTES % (AUTO) 14.7 % (21.0-51.0); MEAN CORPUSCULAR HEMOGLOBIN 25.9 pg (27.0-34.0); MEAN CORPUSCULAR HGB CONC 31.5 g/dL (33.0-35.0); MEAN CORPUSCULAR VOLUME 81.9 fL (80.0-100.0); MEAN PLATELET VOLUME 9.8 fL (7.4-11.0); MONOCYTES # (AUTO) 0.4 x10^3/uL (0.3-0.8); MONOCYTES % (AUTO) 9.3 % (0.0-13.0); NEUTROPHILS # (AUTO) 3.1 x10^3/uL (2.2-4.8); NEUTROPHILS % (AUTO) 74.4 % (42.0-75.0); PLATELET COUNT 87 X10^3/uL (150.0-450.0); RED BLOOD COUNT 4.14 X10^6/uL (3.5-5.4); RED CELL DISTRIBUTION WIDTH 16.6 % (11.6-16.5); WHITE BLOOD COUNT 4.2 X10^3/uL (3.6-10.0)
[2020-09-06 18:44] LABS: PLATELET MORPHOLOGY COMMENT NORMAL (NORMAL)
[2020-09-06 18:45] LABS: HYPOCHROMASIA SLIGHT
[2020-09-06 19:25] LABS: ALANINE AMINOTRANSFERASE 31 Units/L (12-78); ALBUMIN 3.4 g/dL (3.4-5.0); ALKALINE PHOSPHATASE 119 Units/L (46-116); ASPARTATE AMINO TRANSFERASE 35 Units/L (15-37); BLOOD UREA NITROGEN 37 mg/dL (7-18); CALCIUM 9.2 mg/dL (8.5-10.1); CARBON DIOXIDE 32.4 mmol/L (21-32); CHLORIDE 104 mmol/L (98-107); CKMB % 2.9 % (<4); CREATINE KINASE 34 Units/L (26-192); CREATINE KINASE MB < 1.0 ng/mL (0-4.0); CREATININE 1.66 mg/dL (0.55-1.02); MAGNESIUM 2.3 mg/dL (1.7-2.9); SODIUM 142 mmol/L (136-145); TOTAL PROTEIN 6.7 g/dL (6.4-8.2); TROPONIN I 0.03 ng/mL (0-1.5); eGFR NON BLACK RACES 32 (>60)
--- NOTE | 2020-09-06 19:59 | RAD ---
CHEST, 1 VIEWHISTORY: CHRONIC CHF, SOBStudy: Single view of the chest.Comparison:September 01, 2020Findings:Cardiomegaly.No focal consolidations, pleural effusions or pneumothorax. Osseous structures demonstrate no acute abnormality.IMPRESSION:1. No acute cardiopulmonary process.Electronically signed by: GILMER COX (Sep 06, 2020 19:57:37)
[2020-09-06] MEDS ORDERED: REMDESIVIR 200 MG in NS 250 ML IV 250 ML IV SCH (20:00)
[2020-09-06 21:08] LABS: ABG ALLEN TEST POS; ABG BASE EXCESS 6.1 mmol/L (-2.0-2.0); ABG HCO3 31.2 mmol/L (22-26)
--- NOTE | 2020-09-06 22:39 | RAD ---
HISTORYCENTRAL LINE PLACEMENTSTUDYCHEST, 1 [id number]/22/2020FINDINGSThe trachea is midline. The cardiac silhouette is enlarged, similar to prior exam. Moderate atherosclerotic calcification of the thoracic aorta again seen. Mild central pulmonary vascular congestion. Stable elevation of the right hemidiaphragm. No new consolidation. Interval placement of a right IJ CVC, although its tip is not well-demonstrated due to overlying density and mild motion. No pneumothorax. The bony thorax is stable.IMPRESSIONInterval placement of a right subclavian CVC. Its tip is not well demonstrated due to overlying densities and mild motion. Recommend repeat imaging or oblique views for further assessment.Electronically signed by: Lorena Adams (Sep 06, 2020 22:37:50)
[2020-09-06] MEDS ORDERED: REMDESIVIR IV ONE (23:37)
[2020-09-06] MEDS ORDERED: NS 250 ML IV 250 ML IV ONE ×2 (23:40→23:52)
[2020-09-07] MEDS: PROTONIX INJ 40 MG VIAL IVP SCH ×3 (00:15→22:00)
[2020-09-07] MEDS: LASIX IVP SCH ×3 (00:15→21:05)
[2020-09-07] MEDS: TAMBOCOR PO SCH ×3 (00:15→21:05)
[2020-09-07] MEDS: COREG TAB 3.125 MG PO SCH ×3 (00:43→21:05)
[2020-09-07] MEDS: ZITHROMAX INJ 500 MG VIAL 500 MG in NS 250 ML IV 250 ML IV SCH ×2 (01:15→05:46)
[2020-09-07 02:24] LABS: CKMB % 2.9 % (<4); CREATINE KINASE 35 Units/L (26-192); CREATINE KINASE MB < 1.0 ng/mL (0-4.0); TROPONIN I 0.04 ng/mL (0-1.5)
[2020-09-07] MEDS: NORCO 5/325 MG TAB PO PRN ×3 (03:16→21:00)
[2020-09-07 04:41] VITALS: BMI 44.6
[2020-09-07] MEDS: ZOSYN VIAL 3.375 GRAMS 3.375 G in NS 100 ML IV + SPIKE MINIBAG* 100 ML IV SCH ×4 (05:15→21:05)
[2020-09-07 06:03] LABS: BASOPHILS # (AUTO) 0.1 X10^3/uL (0.0-0.1); BASOPHILS % (AUTO) 1.9 % (0.2-1.0); EOSINOPHILS % (AUTO) 0.6 % (0.9-2.9); HEMATOCRIT 30.8 % (36.0-47.0); HEMOGLOBIN 9.9 g/dL (12.0-16.0); LYMPHOCYTES # (AUTO) 0.5 X10^3/uL (1.3-2.9); LYMPHOCYTES % (AUTO) 13.5 % (21.0-51.0); MEAN CORPUSCULAR HEMOGLOBIN 26.1 pg (27.0-34.0); MEAN CORPUSCULAR VOLUME 81.4 fL (80.0-100.0); MEAN PLATELET VOLUME 9.6 fL (7.4-11.0); MONOCYTES # (AUTO) 0.4 x10^3/uL (0.3-0.8); MONOCYTES % (AUTO) 12.8 % (0.0-13.0); NEUTROPHILS # (AUTO) 2.5 x10^3/uL (2.2-4.8); NEUTROPHILS % (AUTO) 71.2 % (42.0-75.0); PLATELET COUNT 72 X10^3/uL (150.0-450.0); RED BLOOD COUNT 3.78 X10^6/uL (3.5-5.4); RED CELL DISTRIBUTION WIDTH 17.2 % (11.6-16.5); WHITE BLOOD COUNT 3.5 X10^3/uL (3.6-10.0)
[2020-09-07 06:09] LABS: ALANINE AMINOTRANSFERASE 25 Units/L (12-78); ALKALINE PHOSPHATASE 107 Units/L (46-116); ASPARTATE AMINO TRANSFERASE 32 Units/L (15-37); BLOOD UREA NITROGEN 33 mg/dL (7-18); CALCIUM 8.9 mg/dL (8.5-10.1); CARBON DIOXIDE 32.3 mmol/L (21-32); CHLORIDE 105 mmol/L (98-107); COR CA(FOR HYPOALB) 9.7 mg/dL (8.5-10.1); SODIUM 143 mmol/L (136-145); TOTAL PROTEIN 5.8 g/dL (6.4-8.2); eGFR NON BLACK RACES 36 (>60)
[2020-09-07 06:23] LABS: CKMB % 2.9 % (<4); CREATINE KINASE 35 Units/L (26-192); CREATINE KINASE MB < 1.0 ng/mL (0-4.0); TROPONIN I 0.08 ng/mL (0-1.5)
[2020-09-07] MEDS: NS 250 ML IV 250 ML IV PRN (08:45)
[2020-09-07] MEDS: REMDESIVIR 100 MG in NS 250 ML IV 250 ML IV SCH (08:47)
[2020-09-07] MEDS ORDERED: NS 250 ML IV 250 ML IV ONE (08:52)
[2020-09-07 09:26] LABS: CKMB % 3.3 % (<4); CREATINE KINASE 30 Units/L (26-192); CREATINE KINASE MB < 1.0 ng/mL (0-4.0); TROPONIN I 0.05 ng/mL (0-1.5)
[2020-09-07] MEDS: K-DUR TAB 20 MEQ PO SCH ×2 (11:11→11:23)
[2020-09-07] MEDS: XARELTO PO SCH (11:12)
--- NOTE | 2020-09-07 11:53 | DR.H&P ---
H&P - History & Physical for Day of: H&P Date: 09/06/20 - Chief Complaint Chief Complaint: SOB, DRY COUGH, SWELLING - History of Present Illness History of Present Illness: PT IS 79 WF WITH PMH OF CHF AND AFIB. PT REPORTS SHE HAS HAD INCREASED SOB, LOWER LEG SWELLING AND FATIGUE. PT REPORTS DRY COUGH. PT WAS SEEN IN OFFICE LAST WEEK, THEN ER ON THURSDAY WITH CHF EXACERBATION. PT TO SEE LV IN 2 WEEKS. PT WAS BEEN GIVEN IV LASIX IN ER ON 2 SEPARATE OCCASSIONS WITHOUT IMPROVEMENT. PT STATES HER DAUGHTER IS COVID POSITIVE, BUT PT DENIES ANY KNOWN FEVER. PT HAD + COVID, ADMITTED TO ICU ISOLATION. - Past Medical History Past Medical History: Hypertension, Dyslipidemia, Arthritis, CHF - Past Surgical History Surgical History: Cholecystectomy, Hysterectomy, Joint Replacement - Family History Family Medical History: Diabetes Mellitus, Hypertension - Social History Does patient currently use any type of tobacco product: No Have you used tobacco products in the last 12 months: No Type of Tobacco Use: None Does any household member use tobacco: No Alcohol Use: None Drug Use: None - Medications Home Medications: No Known Drug Allergies Allergy (Verified 03/14/19 15:25) CONTINUE taking the following medications cyanocobalamin (vitamin B-12) 1,000 mcg IM WEEKLY 09/07/20 [History] hydrocodone-acetaminophen 1 tab PO BID PRN 09/07/20 [History] mirabegron [Myrbetriq] 50 mg PO DAILY 09/07/20 [History] torsemide 10 mg PO HS 09/07/20 [History] - Review of Systems Constitutional: Chills, Weakness, Malaise Eyes: No Symptoms Reported ENT: No Symptoms Reported Respiratory: Cough Cardiovascular: Palpitations, Edema, Light Headedness Gastrointestinal: Nausea Genitourinary: No Symptoms Reported Musculoskeletal: Back Pain, Leg Pain Skin: Bruising Neurological: Weakness - Physical Exam Vital Signs: Temperature 97.8 F Pulse Rate [Apical] 71 Respiratory Rate 24 Blood Pressure [Left Arm] 105/63 O2 Sat by Pulse Oximetry 96 Oriented: Normal Eyes: Normal Ear: Normal Nose: Normal Throat: Dry Respiratory: Diminished Throughout Cardiovascular: Irregular, Edema : Normal Auscultation: Bowel Sounds: Normal Palpation: Normal Tenderness: Normal Skin: Decreased Turgur, Bruising Musculoskeletal: Right, Shoulder, Knee, Back:Lumbar, Motor Deficit Psychiatric: Anxiety Affect: Anxious Speech Pattern: Clear, Appropriate - Assessment/Plan (1) SOB (shortness of breath) Status: Acute Plan: ADMIT, ICU ISOLATION. SERIAL CE AND EKG, SUPPLEMENTAL O2. GARCIA WITH STRICT I&OS. IV ZITHROMAX, IV ZOSYN, REMDESIVIR. ABG ON ROOM AIR, VERIFY AND RESUME HOME MEDICATION (2) CHF (congestive heart failure) Qualifiers: Heart failure type: unspecified Heart failure chronicity: chronic Qualified Code(s): I50.9 - Heart failure, unspecified Status: Chronic (3) COVID-19 Status: Acute (4) Atrial fibrillation Status: Chronic (5) GE reflux Qualifiers: Esophagitis presence: without esophagitis Qualified Code(s): K21.9 - Gastro-esophageal reflux disease without esophagitis Status: Chronic (6) HTN (hypertension) Status: Chronic (7) Shoulder pain, bilateral Status: Chronic - Allergies Allergies/Adverse Reactions: Allergies Allergy/AdvReac Type Severity Reaction Status Date / Time No Known Drug Allergies Allergy Verified 03/14/19 15:25
--- NOTE | 2020-09-07 11:59 | PCM.PROG ---
Progress Note - Progress Note for Day of Date of Exam: 09/07/20 - Subjective Subjective: PT IS 79 WF ADMITTED WITH CO SOB AND CHF EXACERBATION. PT IS COVID 19+, CURRENTLY STABLE O2 SATURATION. PT IS ON IV LASIX WITH STRICT I&OS, HAD SERIAL CE AND EKGS. PT ON ZITHROMAX AND IV ZOSYN, REMDESIVIR. PT CO DRY COUGH THIS AM. PT CO RIGHT SHOULER PAIN THIS AM. PT HAD CENTRAL LINE PLACEMENT. PT DENIES ANY CHEST PAIN. - Past Medical Family Social History Past Med/Fam/Surg Hx: No changes since H&P Allergies: Allergies No Known Drug Allergies Allergy (Verified 03/14/19 15:25) - Review of Systems ROS: No change since H&P - Vital Signs and I&O's Vital Signs: Temperature 97.8 F Pulse Rate [Apical] 71 Respiratory Rate 24 Blood Pressure [Left Arm] 105/63 O2 Sat by Pulse Oximetry 96 Intake and Output: Intake & Output 09/04/20 09/05/20 09/06/20 09/07/20 11:59 11:59 11:59 11:59 Intake Total 760 / 760 Output Total 3850 / 3850 Balance -3090 / -3090 - Physical Exam Oriented: Normal Eyes: Normal Ear: Normal Nose: Normal Throat: Dry Respiratory: Diminished, Wheezes Cardiovascular: Irregular, Edema : Normal Auscultation: Bowel Sounds: Normal Tenderness: Normal Skin: Decreased Turgur, Bruising Musculoskeletal: Right, Shoulder, Knee, Back:Lumbar, Motor Deficit Psychiatric: Anxiety Affect: Anxious Speech Pattern: Clear, Appropriate - Laboratory and Diagnostics Result Diagrams: 09/07/20 05:00 09/07/20 05:00 Labs: Laboratory WBC 3.5 X10^3/uL (3.6-10.0) L 09/07/20 05:00 RBC 3.78 X10^6/uL (3.5-5.4) 09/07/20 05:00 Hgb 9.9 g/dL (12.0-16.0) L 09/07/20 05:00 Hct 30.8 % (36.0-47.0) L 09/07/20 05:00 MCV 81.4 fL (80.0-100.0) 09/07/20 05:00 MCH 26.1 pg (27.0-34.0) L 09/07/20 05:00 MCHC 32.0 g/dL (33.0-35.0) L 09/07/20 05:00 RDW 17.2 % (11.6-16.5) H 09/07/20 05:00 Plt Count 72 X10^3/uL (150.0-450.0) L 09/07/20 05:00 Plt Count Comment Decreased (ADEQUATE) A 09/06/20 18:20 MPV 9.6 fL (7.4-11.0) 09/07/20 05:00 Neut % (Auto) 71.2 % (42.0-75.0) 09/07/20 05:00 Lymph % (Auto) 13.5 % (21.0-51.0) L 09/07/20 05:00 Lea % (Auto) 12.8 % (0.0-13.0) 09/07/20 05:00 Eos % (Auto) 0.6 % (0.9-2.9) L 09/07/20 05:00 Baso % (Auto) 1.9 % (0.2-1.0) H 09/07/20 05:00 Neut # (Auto) 2.5 x10^3/uL (2.2-4.8) 09/07/20 05:00 Lymph # (Auto) 0.5 X10^3/uL (1.3-2.9) L 09/07/20 05:00 Lea # (Auto) 0.4 x10^3/uL (0.3-0.8) 09/07/20 05:00 Eos # (Auto) 0.0 x10^3/uL (0.0-0.2) 09/07/20 05:00 Baso # (Auto) 0.1 X10^3/uL (0.0-0.1) 09/07/20 05:00 Absolute Nucleated RBC 0.0 /100WBC 09/07/20 05:00 Plt Morphology Comment Normal (NORMAL) 09/06/20 18:20 RBC Morphology Abnormal (NORMAL) A 09/06/20 18:20 Hypochromasia Slight A 09/06/20 18:20 PT 15.2 SECONDS (11.8-14.3) 09/06/20 18:20 INR Target Range - 09/06/20 18:20 INR 1.24 (0.8-1.3) 09/06/20 18:20 APTT 31.5 SECONDS (22.9-36.5) 09/06/20 18:20 PTT Comment - 09/06/20 18:20 Sample Site Lrad 09/06/20 21:04 ABG pH 7.440 (7.35-7.45) 09/06/20 21:04 ABG pCO2 46.0 mmHg (35.0-45.0) H 09/06/20 21:04 ABG pO2 72.0 mmHg (80.0-100.0) L 09/06/20 21:04 ABG HCO3 31.2 mmol/L (22-26) H* 09/06/20 21:04 ABG O2 Saturation 95.0 % (90-100) 09/06/20 21:04 ABG Base Excess 6.1 mmol/L (-2.0-2.0) H 09/06/20 21:04 Ethan Test Pos 09/06/20 21:04 A-a Gradient 20.0 mmHg 09/06/20 21:04 FiO2 21.0 09/06/20 21:04 Blood Gas Comments Jeannette abg well-mtf 09/06/20 21:04 Sodium 143 mmol/L (136-145) 09/07/20 05:00 Corrected Sodium TNP 09/07/20 05:00 Potassium 4.5 mmol/L (3.5-5.1) 09/07/20 05:00 Chloride 105 mmol/L (98-107) 09/07/20 05:00 Carbon Dioxide 32.3 mmol/L (21-32) H 09/07/20 05:00 BUN 33 mg/dL (7-18) H 09/07/20 05:00 Creatinine 1.50 mg/dL (0.55-1.02) H 09/07/20 05:00 Est GFR (MDRD) Af Amer 43 (>60) L 09/07/20 05:00 Est GFR (MDRD) Non-Af 36 (>60) L 09/07/20 05:00 Glucose 94 mg/dL (65-99) 09/07/20 05:00 Calcium 8.9 mg/dL (8.5-10.1) 09/07/20 05:00 Corrected Calcium 9.7 mg/dL (8.5-10.1) 09/07/20 05:00 Magnesium 2.3 mg/dL (1.7-2.9) 09/06/20 18:20 Total Bilirubin 0.60 mg/dL (0.2-1.0) 09/07/20 05:00 AST 32 Units/L (15-37) 09/07/20 05:00 ALT 25 Units/L (12-78) 09/07/20 05:00 Alkaline Phosphatase 107 Units/L (46-116) 09/07/20 05:00 Creatine Kinase 30 Units/L (26-192) 09/07/20 08:36 CK-MB (CK-2) < 1.0 ng/mL (0-4.0) 09/07/20 08:36 CK/CKMB % Calc 3.3 % (<4) 09/07/20 08:36 Troponin I 0.05 ng/mL (0-1.5) 09/07/20 08:36 C-Reactive Protein 4.80 mg/L (0-3.0) H 09/07/20 05:00 Total Protein 5.8 g/dL (6.4-8.2) L 09/07/20 05:00 Albumin 3.0 g/dL (3.4-5.0) L 09/07/20 05:00 Globulin 2.8 g/dL (2.5-4.5) 09/07/20 05:00 Albumin/Globulin Ratio 1.1 Ratio (1.1-2.1) 09/07/20 05:00 SARS-CoV-2 (PCR) Positive (NEGATIVE) A 09/06/20 18:10 - Plan (1) SOB (shortness of breath) Status: Acute Plan: ICU ISOLATION. SERIAL CE AND EKG, SUPPLEMENTAL O2. GARCIA WITH STRICT I&OS. IV ZITHROMAX, IV ZOSYN, REMDESIVIR. ABG ON ROOM AIR, BP MEDICATION, BB STATIN AND XARELTO RESUMED (2) CHF (congestive heart failure) Status: Chronic Qualifiers: Heart failure type: unspecified Heart failure chronicity: chronic Qualified Code(s): I50.9 - Heart failure, unspecified (3) COVID-19 Status: Acute (4) Atrial fibrillation Status: Chronic (5) GE reflux Status: Chronic Qualifiers: Esophagitis presence: without esophagitis Qualified Code(s): K21.9 - Gastro-esophageal reflux disease without esophagitis (6) HTN (hypertension) Status: Chronic (7) Shoulder pain, bilateral Status: Chronic
[2020-09-07 17:29] LABS: BILIRUBIN,URINE NEGATIVE (NEGATIVE); BLOOD/HEMOGLOBIN,URINE NEGATIVE (NEGATIVE); GLUCOSE, URINE NEGATIVE (NEGATIVE); KETONES,URINE NEGATIVE (NEGATIVE); LEUKOCYTE ESTERASE ,URINE NEGATIVE (NEGATIVE); NITRITES,URINE NEGATIVE (NEGATIVE); PROTEIN,URINE NEGATIVE (NEGATIVE); UROBILINOGEN,URINE NORMAL (NORMAL)
[2020-09-07 17:30] LABS: APPEARANCE,URINE CLEAR (CLEAR); COLOR,URINE YELLOW (YELLOW)
[2020-09-07] MEDS: CRESTOR TAB 10 MG PO SCH (21:05)
[2020-09-07] MEDS: LYRICA CAP 150 mg PO SCH (21:05)
[2020-09-08 04:33] LABS: BASOPHILS % (AUTO) 0.7 % (0.2-1.0); EOSINOPHILS % (AUTO) 0.6 % (0.9-2.9); HEMATOCRIT 30.9 % (36.0-47.0); HEMOGLOBIN 9.9 g/dL (12.0-16.0); LYMPHOCYTES # (AUTO) 0.5 X10^3/uL (1.3-2.9); LYMPHOCYTES % (AUTO) 13.9 % (21.0-51.0); MEAN CORPUSCULAR HEMOGLOBIN 26.1 pg (27.0-34.0); MEAN CORPUSCULAR VOLUME 81.6 fL (80.0-100.0); MEAN PLATELET VOLUME 9.8 fL (7.4-11.0); MONOCYTES # (AUTO) 0.5 x10^3/uL (0.3-0.8); NEUTROPHILS # (AUTO) 2.6 x10^3/uL (2.2-4.8); NEUTROPHILS % (AUTO) 71.8 % (42.0-75.0); PLATELET COUNT 72 X10^3/uL (150.0-450.0); RED BLOOD COUNT 3.78 X10^6/uL (3.5-5.4); RED CELL DISTRIBUTION WIDTH 17.2 % (11.6-16.5); WHITE BLOOD COUNT 3.6 X10^3/uL (3.6-10.0)
[2020-09-08 04:43] LABS: ALANINE AMINOTRANSFERASE 26 Units/L (12-78); ALBUMIN 2.8 g/dL (3.4-5.0); ALKALINE PHOSPHATASE 102 Units/L (46-116); ASPARTATE AMINO TRANSFERASE 37 Units/L (15-37); BLOOD UREA NITROGEN 32 mg/dL (7-18); CALCIUM 8.5 mg/dL (8.5-10.1); CARBON DIOXIDE 36.7 mmol/L (21-32); CHLORIDE 103 mmol/L (98-107); COR CA(FOR HYPOALB) 9.5 mg/dL (8.5-10.1); CREATININE 1.73 mg/dL (0.55-1.02); SODIUM 143 mmol/L (136-145); TOTAL PROTEIN 6.1 g/dL (6.4-8.2); eGFR NON BLACK RACES 30 (>60)
[2020-09-08] MEDS: ZOSYN VIAL 3.375 GRAMS 3.375 G in NS 100 ML IV + SPIKE MINIBAG* 100 ML IV SCH ×3 (06:00→22:10)
[2020-09-08] MEDS: COREG TAB 3.125 MG PO SCH ×2 (09:12→21:18)
[2020-09-08] MEDS: XARELTO PO SCH (09:12)
[2020-09-08] MEDS: TAMBOCOR PO SCH ×2 (09:12→21:23)
[2020-09-08] MEDS: PROTONIX INJ 40 MG VIAL IVP SCH ×2 (09:13→21:22)
[2020-09-08] MEDS: ZITHROMAX INJ 500 MG VIAL 500 MG in NS 250 ML IV 250 ML IV SCH (09:14)
[2020-09-08] MEDS: LASIX IVP SCH ×2 (09:30→21:22)
[2020-09-08] MEDS: REMDESIVIR 100 MG in NS 250 ML IV 250 ML IV SCH (11:17)
[2020-09-08] MEDS: NORCO 5/325 MG TAB PO PRN (14:38)
[2020-09-08] MEDS: K-DUR TAB 20 MEQ PO SCH (18:02)
[2020-09-08] MEDS: LYRICA CAP 150 mg PO SCH (21:22)
[2020-09-08] MEDS: CRESTOR TAB 10 MG PO SCH (21:22)
[2020-09-09] MEDS: ZOSYN VIAL 3.375 GRAMS 3.375 G in NS 100 ML IV + SPIKE MINIBAG* 100 ML IV SCH ×3 (05:10→21:10)
[2020-09-09 05:22] LABS: EOSINOPHILS % (AUTO) 0.6 % (0.9-2.9); HEMATOCRIT 30.7 % (36.0-47.0); HEMOGLOBIN 9.7 g/dL (12.0-16.0); LYMPHOCYTES # (AUTO) 0.7 X10^3/uL (1.3-2.9); LYMPHOCYTES % (AUTO) 23.7 % (21.0-51.0); MEAN CORPUSCULAR HEMOGLOBIN 26.2 pg (27.0-34.0); MEAN CORPUSCULAR HGB CONC 31.6 g/dL (33.0-35.0); MEAN CORPUSCULAR VOLUME 82.9 fL (80.0-100.0); MEAN PLATELET VOLUME 9.8 fL (7.4-11.0); MONOCYTES # (AUTO) 0.5 x10^3/uL (0.3-0.8); MONOCYTES % (AUTO) 16.3 % (0.0-13.0); NEUTROPHILS # (AUTO) 1.8 x10^3/uL (2.2-4.8); NEUTROPHILS % (AUTO) 58.4 % (42.0-75.0); PLATELET COUNT 62 X10^3/uL (150.0-450.0); RED BLOOD COUNT 3.71 X10^6/uL (3.5-5.4); RED CELL DISTRIBUTION WIDTH 17.2 % (11.6-16.5)
[2020-09-09 05:31] LABS: ALANINE AMINOTRANSFERASE 25 Units/L (12-78); ALBUMIN 2.5 g/dL (3.4-5.0); ALKALINE PHOSPHATASE 85 Units/L (46-116); ASPARTATE AMINO TRANSFERASE 55 Units/L (15-37); BLOOD UREA NITROGEN 27 mg/dL (7-18); CALCIUM 7.7 mg/dL (8.5-10.1); CARBON DIOXIDE 35.5 mmol/L (21-32); CHLORIDE 106 mmol/L (98-107); COR CA(FOR HYPOALB) 8.9 mg/dL (8.5-10.1); SODIUM 144 mmol/L (136-145); TOTAL PROTEIN 5.7 g/dL (6.4-8.2); eGFR NON BLACK RACES 36 (>60)
--- NOTE | 2020-09-09 06:42 | RAD ---
HISTORYcovid -19STUDYCHEST, 1 [id number]/22/2020TECHNIQUEAP view of the chestFINDINGSLeft chest wall pacemaker in situ. Stable cardiomegaly. Low lung volumes. Mild scattered interstitial opacities particularly in the perihilar regions. Right subclavian central line likely terminates just within the right atrium. No definite pleural effusion or pneumothorax.IMPRESSIONCardiomegaly with mild interstitial opacities consistent with covid 19 but which could also represent edema. Right subclavian central line likely terminates just within the right atrium, consider 2-3 cm retraction.Electronically signed by: Arpit Enamorado (Sep 09, 2020 06:40:58)
[2020-09-09] MEDS: COREG TAB 3.125 MG PO SCH ×2 (09:33→21:10)
[2020-09-09] MEDS: K-DUR TAB 20 MEQ PO SCH (09:33)
[2020-09-09] MEDS: LASIX IVP SCH ×2 (09:34→21:10)
[2020-09-09] MEDS: REMDESIVIR 100 MG in NS 250 ML IV 250 ML IV SCH (09:34)
[2020-09-09] MEDS: PROTONIX INJ 40 MG VIAL IVP SCH ×2 (09:34→21:10)
[2020-09-09] MEDS: TAMBOCOR PO SCH ×2 (09:35→21:10)
[2020-09-09] MEDS: XARELTO PO SCH (09:36)
[2020-09-09] MEDS: NORCO 5/325 MG TAB PO PRN ×2 (10:34→17:15)
[2020-09-09] MEDS: ZITHROMAX INJ 500 MG VIAL 500 MG in NS 250 ML IV 250 ML IV SCH (11:26)
[2020-09-09] MEDS: CRESTOR TAB 10 MG PO SCH (21:10)
[2020-09-09] MEDS: LYRICA CAP 150 mg PO SCH (21:10)
[2020-09-10] MEDS: NORCO 5/325 MG TAB PO PRN ×3 (01:20→21:00)
[2020-09-10 04:17] LABS: ABG BASE EXCESS 16.4 mmol/L (-2.0-2.0)
[2020-09-10 04:18] LABS: ABG ALLEN TEST POS; ABG HCO3 44.4 mmol/L (22-26)
[2020-09-10] MEDS: ZOSYN VIAL 3.375 GRAMS 3.375 G in NS 100 ML IV + SPIKE MINIBAG* 100 ML IV SCH ×3 (05:05→21:00)
[2020-09-10 05:24] LABS: BASOPHILS % (AUTO) 0.9 % (0.2-1.0); EOSINOPHILS % (AUTO) 0.6 % (0.9-2.9); HEMATOCRIT 32.5 % (36.0-47.0); HEMOGLOBIN 10.2 g/dL (12.0-16.0); LYMPHOCYTES # (AUTO) 1.2 X10^3/uL (1.3-2.9); MEAN CORPUSCULAR HEMOGLOBIN 25.9 pg (27.0-34.0); MEAN CORPUSCULAR HGB CONC 31.5 g/dL (33.0-35.0); MEAN PLATELET VOLUME 10.3 fL (7.4-11.0); MONOCYTES # (AUTO) 0.5 x10^3/uL (0.3-0.8); MONOCYTES % (AUTO) 14.4 % (0.0-13.0); NEUTROPHILS # (AUTO) 1.5 x10^3/uL (2.2-4.8); NEUTROPHILS % (AUTO) 47.1 % (42.0-75.0); PLATELET COUNT 64 X10^3/uL (150.0-450.0); RED BLOOD COUNT 3.96 X10^6/uL (3.5-5.4); RED CELL DISTRIBUTION WIDTH 17.1 % (11.6-16.5); WHITE BLOOD COUNT 3.2 X10^3/uL (3.6-10.0)
--- NOTE | 2020-09-10 05:38 | RAD ---
HISTORYCHFSTUDYCHEST, 1 [id number]/25/2020FINDINGSThe trachea is midline. Right central line unchanged with tip within the proximal right atrium. Permanent pacing device. The cardiac silhouette is enlarged.. Improved aeration noted throughout the lung huynh. There is mild elevation of the right hemidiaphragm.. The bony thorax is unremarkable.IMPRESSIONCardiomegaly.Mild perihilar opacities with overall improved aeration from previous 09/09/2020Electronically signed by: Jeremiah Patterson (Sep 10, 2020 05:37:24)
[2020-09-10 05:54] LABS: HYPOCHROMASIA SLIGHT; PLATELET MORPHOLOGY COMMENT NORMAL (NORMAL)
[2020-09-10 05:59] LABS: ALANINE AMINOTRANSFERASE 29 Units/L (12-78); ALBUMIN 2.5 g/dL (3.4-5.0); ALKALINE PHOSPHATASE 85 Units/L (46-116); ASPARTATE AMINO TRANSFERASE 59 Units/L (15-37); BLOOD UREA NITROGEN 32 mg/dL (7-18); CALCIUM 8.3 mg/dL (8.5-10.1); CARBON DIOXIDE 39.4 mmol/L (21-32); CHLORIDE 103 mmol/L (98-107); COR CA(FOR HYPOALB) 9.5 mg/dL (8.5-10.1); CREATININE 1.67 mg/dL (0.55-1.02); SODIUM 143 mmol/L (136-145); eGFR NON BLACK RACES 32 (>60)
[2020-09-10] MEDS: COREG TAB 3.125 MG PO SCH ×2 (09:56→21:00)
[2020-09-10] MEDS: K-DUR TAB 20 MEQ PO SCH (09:56)
[2020-09-10] MEDS: TAMBOCOR PO SCH ×2 (09:57→21:00)
[2020-09-10] MEDS: PROTONIX INJ 40 MG VIAL IVP SCH ×2 (09:57→21:00)
[2020-09-10] MEDS: LASIX IVP SCH ×2 (09:57→21:00)
[2020-09-10] MEDS: XARELTO PO SCH (09:57)
[2020-09-10] MEDS: REMDESIVIR 100 MG in NS 250 ML IV 250 ML IV SCH (09:57)
[2020-09-10] MEDS: ZITHROMAX INJ 500 MG VIAL 500 MG in NS 250 ML IV 250 ML IV SCH (10:45)
[2020-09-10] MEDS: VOLTAREN 1 % GEL MULTI DOSE TUBE TOP SCH ×2 (14:08→21:00)
[2020-09-10] MEDS ORDERED: NS 250 ML IV 250 ML IV ONE (17:46)
[2020-09-10] MEDS: NS 250 ML IV 250 ML IV PRN (18:02)
[2020-09-10] MEDS: LYRICA CAP 150 mg PO SCH (21:00)
[2020-09-10] MEDS: CRESTOR TAB 10 MG PO SCH (21:00)
[2020-09-11 05:16] LABS: BASOPHILS % (AUTO) 0.7 % (0.2-1.0); EOSINOPHILS % (AUTO) 1.2 % (0.9-2.9); HEMATOCRIT 34.6 % (36.0-47.0); LYMPHOCYTES # (AUTO) 1.6 X10^3/uL (1.3-2.9); LYMPHOCYTES % (AUTO) 47.2 % (21.0-51.0); MEAN CORPUSCULAR HEMOGLOBIN 26.2 pg (27.0-34.0); MEAN CORPUSCULAR HGB CONC 31.9 g/dL (33.0-35.0); MEAN CORPUSCULAR VOLUME 81.9 fL (80.0-100.0); MEAN PLATELET VOLUME 10.3 fL (7.4-11.0); MONOCYTES # (AUTO) 0.4 x10^3/uL (0.3-0.8); MONOCYTES % (AUTO) 10.6 % (0.0-13.0); NEUTROPHILS # (AUTO) 1.4 x10^3/uL (2.2-4.8); NEUTROPHILS % (AUTO) 40.3 % (42.0-75.0); PLATELET COUNT 65 X10^3/uL (150.0-450.0); RED BLOOD COUNT 4.22 X10^6/uL (3.5-5.4); RED CELL DISTRIBUTION WIDTH 16.7 % (11.6-16.5); WHITE BLOOD COUNT 3.4 X10^3/uL (3.6-10.0)
[2020-09-11 05:26] LABS: ALANINE AMINOTRANSFERASE 27 Units/L (12-78); ALBUMIN 2.7 g/dL (3.4-5.0); ALKALINE PHOSPHATASE 82 Units/L (46-116); ASPARTATE AMINO TRANSFERASE 50 Units/L (15-37); BLOOD UREA NITROGEN 33 mg/dL (7-18); CALCIUM 8.4 mg/dL (8.5-10.1); CARBON DIOXIDE 38.8 mmol/L (21-32); CHLORIDE 104 mmol/L (98-107); COR CA(FOR HYPOALB) 9.4 mg/dL (8.5-10.1); CREATININE 1.52 mg/dL (0.55-1.02); SODIUM 144 mmol/L (136-145); TOTAL PROTEIN 6.3 g/dL (6.4-8.2); eGFR NON BLACK RACES 35 (>60)
[2020-09-11] MEDS: ZOSYN VIAL 3.375 GRAMS 3.375 G in NS 100 ML IV + SPIKE MINIBAG* 100 ML IV SCH ×3 (06:00→21:00)
[2020-09-11] MEDS: VOLTAREN 1 % GEL MULTI DOSE TUBE TOP SCH ×3 (06:00→22:04)
[2020-09-11] MEDS: NS 250 ML IV 250 ML IV PRN ×2 (06:00→20:47)
[2020-09-11] MEDS: ZITHROMAX INJ 500 MG VIAL 500 MG in NS 250 ML IV 250 ML IV SCH (08:24)
[2020-09-11] MEDS: PROTONIX INJ 40 MG VIAL IVP SCH ×2 (08:25→20:47)
[2020-09-11] MEDS: COREG TAB 3.125 MG PO SCH ×2 (08:25→20:43)
[2020-09-11] MEDS: LASIX IVP SCH ×2 (08:25→20:46)
[2020-09-11] MEDS: TAMBOCOR PO SCH ×2 (08:25→20:47)
[2020-09-11] MEDS: K-DUR TAB 20 MEQ PO SCH (08:25)
[2020-09-11] MEDS: XARELTO PO SCH (08:26)
[2020-09-11] MEDS: NORCO 5/325 MG TAB PO PRN ×2 (08:26→16:00)
[2020-09-11] MEDS: FLONASE NASAL SPRAY ENOSTRIL SCH (12:16)
[2020-09-11] MEDS: HEMOCYTE-PLUS PO SCH (14:19)
--- NOTE | 2020-09-11 16:24 | RAD ---
HISTORYCOVID POSSTUDYCHEST, 1 [id number]/26/2020FINDINGSThe heart is mildly enlarged but unchanged. The pulmonary vessels are slightly less prominent centrally. The lungs are hypoinflated with mild linear densities along the right lung base which is more prominent. There is a right subclavian catheter and left pacemaker in place which is unchanged. No effusion is seen.IMPRESSIONStable cardiomegaly and mild central pulmonary congestion which is less prominent.Right subclavian catheter and left pacemaker unchanged.Mild discoid atelectasis or scarring along the right lung base which is more prominent.Electronically signed by: CHANDLER OLIVIA (Sep 11, 2020 16:22:40)
[2020-09-11] MEDS: MAALOX or MYLANTA PO PRN (18:28)
[2020-09-11] MEDS ORDERED: NS 250 ML IV 250 ML IV ONE (20:32)
[2020-09-11] MEDS: LYRICA CAP 150 mg PO SCH (20:46)
[2020-09-11] MEDS: CRESTOR TAB 10 MG PO SCH (20:46)
[2020-09-11 21:59] LABS: ABG BASE EXCESS 16.3 mmol/L (-2.0-2.0)
[2020-09-11 22:01] LABS: ABG ALLEN TEST POS; ABG HCO3 43.5 mmol/L (22-26)
[2020-09-12] MEDS: NORCO 5/325 MG TAB PO PRN ×2 (00:12→15:52)
[2020-09-12 05:27] LABS: BASOPHILS % (AUTO) 0.9 % (0.2-1.0); EOSINOPHILS # (AUTO) 0.1 x10^3/uL (0.0-0.2); EOSINOPHILS % (AUTO) 1.7 % (0.9-2.9); HEMATOCRIT 32.9 % (36.0-47.0); HEMOGLOBIN 10.5 g/dL (12.0-16.0); LYMPHOCYTES # (AUTO) 1.4 X10^3/uL (1.3-2.9); LYMPHOCYTES % (AUTO) 43.1 % (21.0-51.0); MEAN CORPUSCULAR HEMOGLOBIN 26.1 pg (27.0-34.0); MEAN CORPUSCULAR HGB CONC 31.8 g/dL (33.0-35.0); MONOCYTES # (AUTO) 0.3 x10^3/uL (0.3-0.8); MONOCYTES % (AUTO) 9.8 % (0.0-13.0); NEUTROPHILS # (AUTO) 1.5 x10^3/uL (2.2-4.8); NEUTROPHILS % (AUTO) 44.5 % (42.0-75.0); PLATELET COUNT 57 X10^3/uL (150.0-450.0); RED BLOOD COUNT 4.01 X10^6/uL (3.5-5.4); RED CELL DISTRIBUTION WIDTH 16.9 % (11.6-16.5); WHITE BLOOD COUNT 3.3 X10^3/uL (3.6-10.0)
[2020-09-12 05:40] LABS: ALANINE AMINOTRANSFERASE 25 Units/L (12-78); ALBUMIN 2.5 g/dL (3.4-5.0); ALKALINE PHOSPHATASE 76 Units/L (46-116); ASPARTATE AMINO TRANSFERASE 37 Units/L (15-37); BLOOD UREA NITROGEN 33 mg/dL (7-18); CALCIUM 8.3 mg/dL (8.5-10.1); CARBON DIOXIDE 39.4 mmol/L (21-32); CHLORIDE 105 mmol/L (98-107); COR CA(FOR HYPOALB) 9.5 mg/dL (8.5-10.1); CREATININE 1.43 mg/dL (0.55-1.02); SODIUM 145 mmol/L (136-145); eGFR NON BLACK RACES 38 (>60)
[2020-09-12] MEDS: ZOSYN VIAL 3.375 GRAMS 3.375 G in NS 100 ML IV + SPIKE MINIBAG* 100 ML IV SCH ×3 (05:41→21:25)
[2020-09-12] MEDS: VOLTAREN 1 % GEL MULTI DOSE TUBE TOP SCH ×3 (05:41→21:25)
[2020-09-12 05:52] LABS: CKMB % 3.3 % (<4); CREATINE KINASE 30 Units/L (26-192); CREATINE KINASE MB < 1.0 ng/mL (0-4.0); TROPONIN I 0.03 ng/mL (0-1.5)
[2020-09-12] MEDS: COREG TAB 3.125 MG PO SCH ×2 (08:00→20:39)
[2020-09-12] MEDS: FLONASE NASAL SPRAY ENOSTRIL SCH (08:01)
[2020-09-12] MEDS: LASIX IVP SCH ×2 (08:01→20:39)
[2020-09-12] MEDS: K-DUR TAB 20 MEQ PO SCH (08:01)
[2020-09-12] MEDS: HEMOCYTE-PLUS PO SCH (08:01)
[2020-09-12] MEDS: XARELTO PO SCH (08:02)
[2020-09-12] MEDS: ZITHROMAX INJ 500 MG VIAL 500 MG in NS 250 ML IV 250 ML IV SCH (08:02)
[2020-09-12] MEDS: PROTONIX INJ 40 MG VIAL IVP SCH ×2 (08:02→20:39)
[2020-09-12] MEDS: TAMBOCOR PO SCH ×2 (08:02→20:40)
[2020-09-12] MEDS ORDERED: NS 1,000 ML IV 1,000 ML ONE (08:28)
[2020-09-12] MEDS: NS 250 ML IV 250 ML IV PRN (15:00)
[2020-09-12] MEDS: CRESTOR TAB 10 MG PO SCH (20:39)
[2020-09-12] MEDS: LYRICA CAP 150 mg PO SCH (20:39)
[2020-09-13] MEDS: NORCO 5/325 MG TAB PO PRN ×2 (00:15→21:00)
[2020-09-13] MEDS: MAALOX or MYLANTA PO PRN (00:15)
[2020-09-13 05:33] LABS: BASOPHILS % (AUTO) 0.5 % (0.2-1.0); EOSINOPHILS # (AUTO) 0.1 x10^3/uL (0.0-0.2); HEMOGLOBIN 10.5 g/dL (12.0-16.0); LYMPHOCYTES # (AUTO) 1.3 X10^3/uL (1.3-2.9); LYMPHOCYTES % (AUTO) 34.7 % (21.0-51.0); MEAN CORPUSCULAR HGB CONC 31.8 g/dL (33.0-35.0); MEAN CORPUSCULAR VOLUME 81.8 fL (80.0-100.0); MEAN PLATELET VOLUME 10.4 fL (7.4-11.0); MONOCYTES # (AUTO) 0.3 x10^3/uL (0.3-0.8); NEUTROPHILS % (AUTO) 54.8 % (42.0-75.0); PLATELET COUNT 54 X10^3/uL (150.0-450.0); RED BLOOD COUNT 4.03 X10^6/uL (3.5-5.4); RED CELL DISTRIBUTION WIDTH 17.1 % (11.6-16.5); WHITE BLOOD COUNT 3.7 X10^3/uL (3.6-10.0)
[2020-09-13 05:42] LABS: ALANINE AMINOTRANSFERASE 21 Units/L (12-78); ALBUMIN 2.5 g/dL (3.4-5.0); ALKALINE PHOSPHATASE 76 Units/L (46-116); ASPARTATE AMINO TRANSFERASE 34 Units/L (15-37); BLOOD UREA NITROGEN 32 mg/dL (7-18); CALCIUM 8.6 mg/dL (8.5-10.1); CARBON DIOXIDE 39.3 mmol/L (21-32); CHLORIDE 105 mmol/L (98-107); COR CA(FOR HYPOALB) 9.8 mg/dL (8.5-10.1); CREATININE 1.27 mg/dL (0.55-1.02); SODIUM 149 mmol/L (136-145); eGFR NON BLACK RACES 43 (>60)
[2020-09-13] MEDS: VOLTAREN 1 % GEL MULTI DOSE TUBE TOP SCH ×3 (05:59→21:00)
[2020-09-13] MEDS: ZOSYN VIAL 3.375 GRAMS 3.375 G in NS 100 ML IV + SPIKE MINIBAG* 100 ML IV SCH ×3 (05:59→21:00)
[2020-09-13 06:34] LABS: ABG BASE EXCESS 17.4 mmol/L (-2.0-2.0)
[2020-09-13 06:36] LABS: ABG ALLEN TEST POS; ABG HCO3 45.4 mmol/L (22-26)
[2020-09-13] MEDS: ZITHROMAX INJ 500 MG VIAL 500 MG in NS 250 ML IV 250 ML IV SCH (09:27)
[2020-09-13] MEDS: XARELTO PO SCH (09:28)
[2020-09-13] MEDS: K-DUR TAB 20 MEQ PO SCH (09:29)
[2020-09-13] MEDS: FLONASE NASAL SPRAY ENOSTRIL SCH (09:29)
[2020-09-13] MEDS: HEMOCYTE-PLUS PO SCH (09:29)
[2020-09-13] MEDS: LASIX IVP SCH ×2 (09:30→21:00)
[2020-09-13] MEDS: PROTONIX INJ 40 MG VIAL IVP SCH ×2 (09:30→21:00)
[2020-09-13] MEDS: COREG TAB 3.125 MG PO SCH ×2 (09:30→21:00)
[2020-09-13] MEDS: TAMBOCOR PO SCH ×2 (09:34→21:00)
[2020-09-13 14:57] LABS: ALBUMIN 2.7 g/dL (3.4-5.0); CALCIUM 8.5 mg/dL (8.5-10.1); COR CA(FOR HYPOALB) 9.5 mg/dL (8.5-10.1); CREATININE 1.4 mg/dL (0.55-1.02); TOTAL PROTEIN 6.4 g/dL (6.4-8.2)
[2020-09-13 15:02] LABS: CARBON DIOXIDE 42.2 mmol/L (21-32)
--- NOTE | 2020-09-13 18:46 | RAD ---
CHEST, 1 VIEWHistory: PNEUMONIA, CHF, SOBComparison: 09/11/2020Findings: Accounting for AP technique and low lung volumes, there is stable enlargement the cardiac silhouette. There is persistent pulmonary vascular congestion without overt edema. Left-sided pacemaker noted. Lungs are hypoinflated but grossly clear of acute infiltrates. No significant pleural effusion identified. Right subclavian CVL terminates over the cavoatrial junction without pneumothorax.Impression:Stable cardiomegaly and pulmonary vascular congestion without overt edema.Lungs hypoinflated but grossly clear of acute infiltrates.Electronically signed by: AMAURY FLORES (Sep 13, 2020 18:45:07)
[2020-09-13] MEDS: LYRICA CAP 150 mg PO SCH (21:00)
[2020-09-13] MEDS: CRESTOR TAB 10 MG PO SCH (21:00)
[2020-09-13] MEDS: CELEXA PO SCH (21:00)
[2020-09-14] MEDS: ZOSYN VIAL 3.375 GRAMS 3.375 G in NS 100 ML IV + SPIKE MINIBAG* 100 ML IV SCH ×3 (05:59→21:56)
[2020-09-14] MEDS: VOLTAREN 1 % GEL MULTI DOSE TUBE TOP SCH ×2 (05:59→15:28)
[2020-09-14] MEDS: NS 250 ML IV 250 ML IV PRN (06:00)
[2020-09-14] MEDS: NORCO 5/325 MG TAB PO PRN (06:00)
[2020-09-14 06:09] LABS: BASOPHILS % (AUTO) 0.5 % (0.2-1.0); EOSINOPHILS # (AUTO) 0.1 x10^3/uL (0.0-0.2); EOSINOPHILS % (AUTO) 1.8 % (0.9-2.9); HEMATOCRIT 31.3 % (36.0-47.0); HEMOGLOBIN 10.1 g/dL (12.0-16.0); LYMPHOCYTES # (AUTO) 1.1 X10^3/uL (1.3-2.9); LYMPHOCYTES % (AUTO) 32.5 % (21.0-51.0); MEAN CORPUSCULAR HEMOGLOBIN 26.2 pg (27.0-34.0); MEAN CORPUSCULAR HGB CONC 32.1 g/dL (33.0-35.0); MEAN CORPUSCULAR VOLUME 81.6 fL (80.0-100.0); MEAN PLATELET VOLUME 10.8 fL (7.4-11.0); MONOCYTES # (AUTO) 0.3 x10^3/uL (0.3-0.8); MONOCYTES % (AUTO) 8.3 % (0.0-13.0); NEUTROPHILS # (AUTO) 1.9 x10^3/uL (2.2-4.8); NEUTROPHILS % (AUTO) 56.9 % (42.0-75.0); PLATELET COUNT 55 X10^3/uL (150.0-450.0); RED BLOOD COUNT 3.84 X10^6/uL (3.5-5.4); RED CELL DISTRIBUTION WIDTH 16.6 % (11.6-16.5); WHITE BLOOD COUNT 3.4 X10^3/uL (3.6-10.0)
[2020-09-14 06:27] LABS: ALANINE AMINOTRANSFERASE 23 Units/L (12-78); ALBUMIN 2.4 g/dL (3.4-5.0); ALKALINE PHOSPHATASE 75 Units/L (46-116); ASPARTATE AMINO TRANSFERASE 34 Units/L (15-37); BLOOD UREA NITROGEN 28 mg/dL (7-18); CALCIUM 8.4 mg/dL (8.5-10.1); CHLORIDE 106 mmol/L (98-107); COR CA(FOR HYPOALB) 9.7 mg/dL (8.5-10.1); CREATININE 1.22 mg/dL (0.55-1.02); SODIUM 147 mmol/L (136-145); TOTAL PROTEIN 5.4 g/dL (6.4-8.2); eGFR NON BLACK RACES 45 (>60)
[2020-09-14 06:30] LABS: CARBON DIOXIDE 40.7 mmol/L (21-32)
[2020-09-14 08:52] LABS: ABG BASE EXCESS 15.6 mmol/L (-2.0-2.0)
[2020-09-14 08:53] LABS: ABG HCO3 42.4 mmol/L (22-26)
[2020-09-14 08:54] LABS: ABG ALLEN TEST POS
[2020-09-14] MEDS: CELEXA PO SCH (09:37)
[2020-09-14] MEDS: FLONASE NASAL SPRAY ENOSTRIL SCH (09:37)
[2020-09-14] MEDS: COREG TAB 3.125 MG PO SCH ×2 (09:37→20:06)
[2020-09-14] MEDS: HEMOCYTE-PLUS PO SCH (09:39)
[2020-09-14] MEDS: K-DUR TAB 20 MEQ PO SCH ×2 (09:39→20:06)
[2020-09-14] MEDS: TAMBOCOR PO SCH ×2 (09:40→20:07)
[2020-09-14] MEDS: PROTONIX INJ 40 MG VIAL IVP SCH ×2 (09:40→20:09)
[2020-09-14] MEDS: LASIX IVP SCH ×2 (09:40→20:05)
[2020-09-14] MEDS: XARELTO PO SCH (09:41)
[2020-09-14] MEDS: ZITHROMAX INJ 500 MG VIAL 500 MG in NS 250 ML IV 250 ML IV SCH (09:41)
[2020-09-14] MEDS ORDERED: ZOFRAN INJ 4 MG VIAL ONE (12:50)
[2020-09-14] MEDS ORDERED: K-DUR TAB 20 MEQ PO ONE (19:22)
[2020-09-14] MEDS: LYRICA CAP 150 mg PO SCH (20:07)
[2020-09-14] MEDS: CRESTOR TAB 10 MG PO SCH (20:07)
[2020-09-14] MEDS: ZOFRAN INJ 4 MG VIAL IVP PRN (22:51)
[2020-09-15] MEDS: VOLTAREN 1 % GEL MULTI DOSE TUBE TOP SCH ×4 (00:13→21:04)
[2020-09-15] MEDS: ZOSYN VIAL 3.375 GRAMS 3.375 G in NS 100 ML IV + SPIKE MINIBAG* 100 ML IV SCH ×3 (05:05→21:04)
[2020-09-15 05:28] LABS: BASOPHILS % (AUTO) 0.6 % (0.2-1.0); EOSINOPHILS # (AUTO) 0.1 x10^3/uL (0.0-0.2); EOSINOPHILS % (AUTO) 2.5 % (0.9-2.9); HEMATOCRIT 31.7 % (36.0-47.0); LYMPHOCYTES # (AUTO) 0.7 X10^3/uL (1.3-2.9); LYMPHOCYTES % (AUTO) 21.8 % (21.0-51.0); MEAN CORPUSCULAR HEMOGLOBIN 25.9 pg (27.0-34.0); MEAN CORPUSCULAR HGB CONC 31.6 g/dL (33.0-35.0); MEAN CORPUSCULAR VOLUME 81.9 fL (80.0-100.0); MEAN PLATELET VOLUME 10.6 fL (7.4-11.0); MONOCYTES # (AUTO) 0.3 x10^3/uL (0.3-0.8); MONOCYTES % (AUTO) 9.2 % (0.0-13.0); NEUTROPHILS # (AUTO) 2.1 x10^3/uL (2.2-4.8); NEUTROPHILS % (AUTO) 65.9 % (42.0-75.0); PLATELET COUNT 54 X10^3/uL (150.0-450.0); RED BLOOD COUNT 3.87 X10^6/uL (3.5-5.4); RED CELL DISTRIBUTION WIDTH 16.7 % (11.6-16.5); WHITE BLOOD COUNT 3.2 X10^3/uL (3.6-10.0)
[2020-09-15 05:41] LABS: ALANINE AMINOTRANSFERASE 25 Units/L (12-78); ALBUMIN 2.5 g/dL (3.4-5.0); ALKALINE PHOSPHATASE 85 Units/L (46-116); ASPARTATE AMINO TRANSFERASE 41 Units/L (15-37); BLOOD UREA NITROGEN 27 mg/dL (7-18); CALCIUM 8.6 mg/dL (8.5-10.1); CHLORIDE 106 mmol/L (98-107); COR CA(FOR HYPOALB) 9.8 mg/dL (8.5-10.1); CREATININE 1.27 mg/dL (0.55-1.02); SODIUM 147 mmol/L (136-145); TOTAL PROTEIN 5.6 g/dL (6.4-8.2); eGFR NON BLACK RACES 43 (>60)
[2020-09-15 06:16] LABS: ANISOCYTOSIS SLIGHT; HYPOCHROMASIA SLIGHT; PLATELET MORPHOLOGY COMMENT NORMAL (NORMAL)
--- NOTE | 2020-09-15 07:21 | RAD ---
HISTORYPneumoniaSTUDYAP [id number]/29/2020FINDINGSContinued cardiomegaly with pacemaker. Interval increase in bilatera l perihilar infiltrates without evidence for segmental or lobar consolidation, pneumothorax or pleura l fluid. Stable position of right subclavian line.IMPRESSIONIncreasing bilateral perihilar infiltrate s which may be congestive or inflammatory in origin. Continued follow-up suggested.Electronically sig jozef by: EL DARBY (Sep 15, 2020 07:19:18)
[2020-09-15] MEDS: XARELTO PO SCH (09:55)
[2020-09-15] MEDS: CELEXA PO SCH (09:55)
[2020-09-15] MEDS: COREG TAB 3.125 MG PO SCH ×2 (09:55→20:00)
[2020-09-15] MEDS: TAMBOCOR PO SCH ×2 (09:56→20:02)
[2020-09-15] MEDS: LASIX IVP SCH ×2 (09:56→20:01)
[2020-09-15] MEDS: K-DUR TAB 20 MEQ PO SCH ×2 (09:56→20:01)
[2020-09-15] MEDS: ZITHROMAX INJ 500 MG VIAL 500 MG in NS 250 ML IV 250 ML IV SCH (09:57)
[2020-09-15] MEDS: PROTONIX INJ 40 MG VIAL IVP SCH ×2 (09:57→20:02)
[2020-09-15] MEDS: FLONASE NASAL SPRAY ENOSTRIL SCH (09:58)
[2020-09-15] MEDS: HEMOCYTE-PLUS PO SCH (09:59)
[2020-09-15] MEDS: SOLU-Medrol 40 MG VIAL IVP SCH ×3 (10:04→21:04)
[2020-09-15] MEDS: CRESTOR TAB 10 MG PO SCH (20:01)
[2020-09-15] MEDS: LYRICA CAP 150 mg PO SCH (20:01)
[2020-09-15] MEDS: MAALOX or MYLANTA PO PRN (20:07)
[2020-09-15] MEDS: NORCO 5/325 MG TAB PO PRN (21:56)
[2020-09-16] MEDS: SOLU-Medrol 40 MG VIAL IVP SCH (05:08)
[2020-09-16] MEDS: ZOSYN VIAL 3.375 GRAMS 3.375 G in NS 100 ML IV + SPIKE MINIBAG* 100 ML IV SCH ×2 (05:08→14:15)
[2020-09-16 05:30] LABS: BASOPHILS % (AUTO) 0.1 % (0.2-1.0); HEMATOCRIT 32.5 % (36.0-47.0); HEMOGLOBIN 10.3 g/dL (12.0-16.0); LYMPHOCYTES # (AUTO) 0.5 X10^3/uL (1.3-2.9); LYMPHOCYTES % (AUTO) 17.6 % (21.0-51.0); MEAN CORPUSCULAR HEMOGLOBIN 26.1 pg (27.0-34.0); MEAN CORPUSCULAR HGB CONC 31.6 g/dL (33.0-35.0); MEAN CORPUSCULAR VOLUME 82.5 fL (80.0-100.0); MEAN PLATELET VOLUME 11.5 fL (7.4-11.0); MONOCYTES # (AUTO) 0.1 x10^3/uL (0.3-0.8); MONOCYTES % (AUTO) 3.6 % (0.0-13.0); NEUTROPHILS # (AUTO) 2.2 x10^3/uL (2.2-4.8); NEUTROPHILS % (AUTO) 78.7 % (42.0-75.0); PLATELET COUNT 60 X10^3/uL (150.0-450.0); RED BLOOD COUNT 3.94 X10^6/uL (3.5-5.4); WHITE BLOOD COUNT 2.8 X10^3/uL (3.6-10.0)
[2020-09-16 05:51] LABS: ALBUMIN 2.4 g/dL (3.4-5.0); CALCIUM 8.9 mg/dL (8.5-10.1); CARBON DIOXIDE 39.4 mmol/L (21-32); COR CA(FOR HYPOALB) 10.2 mg/dL (8.5-10.1); CREATININE 1.27 mg/dL (0.55-1.02); TOTAL PROTEIN 5.7 g/dL (6.4-8.2)
[2020-09-16] MEDS: VOLTAREN 1 % GEL MULTI DOSE TUBE TOP SCH ×3 (06:03→21:00)
--- NOTE | 2020-09-16 06:32 | RAD ---
HISTORYPneumoniaSTUDYAP [id number]/31/2020FINDINGSStable cardiac enlargement and pacemaker position. Persistent bilateral perihilar and right lower lobe infiltrate/atelectasis. There is no new area of consolidation, complicating pneumothorax or developing pleural fluid. No change in position of right subclavian line.IMPRESSIONStable chest. No interval improvement or progression of bilateral pulmonary infiltrates.Electronically signed by: EL DARBY (Sep 16, 2020 06:30:54)
[2020-09-16] MEDS: ZITHROMAX INJ 500 MG VIAL 500 MG in NS 250 ML IV 250 ML IV SCH (08:55)
[2020-09-16] MEDS: CELEXA PO SCH (08:57)
[2020-09-16] MEDS: LASIX IVP SCH ×2 (08:58→21:00)
[2020-09-16] MEDS: FLONASE NASAL SPRAY ENOSTRIL SCH (08:58)
[2020-09-16] MEDS: K-DUR TAB 20 MEQ PO SCH ×2 (08:58→21:00)
[2020-09-16] MEDS: COREG TAB 3.125 MG PO SCH ×2 (08:58→21:00)
[2020-09-16] MEDS: PROTONIX INJ 40 MG VIAL IVP SCH ×2 (08:59→21:00)
[2020-09-16] MEDS: XARELTO PO SCH (09:00)
[2020-09-16] MEDS: TAMBOCOR PO SCH ×2 (09:00→21:00)
[2020-09-16] MEDS: HEMOCYTE-PLUS PO SCH (09:02)
[2020-09-16] MEDS ORDERED: COLACE CAP 100 MG PO PRN (19:53)
[2020-09-16] MEDS ORDERED: MILK OF MAGNESIA PO PRN (19:53)
[2020-09-16] MEDS: CRESTOR TAB 10 MG PO SCH (21:00)
[2020-09-16] MEDS: NORCO 5/325 MG TAB PO PRN (21:00)
[2020-09-16] MEDS: LYRICA CAP 150 mg PO SCH (21:00)
[2020-09-17] MEDS: NORCO 5/325 MG TAB PO PRN (03:45)
[2020-09-17] MEDS: VOLTAREN 1 % GEL MULTI DOSE TUBE TOP SCH ×3 (05:05→23:24)
[2020-09-17 05:09] LABS: BASOPHILS % (AUTO) 0.2 % (0.2-1.0); HEMATOCRIT 34.6 % (36.0-47.0); HEMOGLOBIN 10.8 g/dL (12.0-16.0); LYMPHOCYTES % (AUTO) 16.9 % (21.0-51.0); MEAN CORPUSCULAR HEMOGLOBIN 25.9 pg (27.0-34.0); MEAN CORPUSCULAR HGB CONC 31.2 g/dL (33.0-35.0); MEAN PLATELET VOLUME 10.6 fL (7.4-11.0); MONOCYTES # (AUTO) 0.4 x10^3/uL (0.3-0.8); MONOCYTES % (AUTO) 7.9 % (0.0-13.0); NEUTROPHILS # (AUTO) 4.3 x10^3/uL (2.2-4.8); PLATELET COUNT 66 X10^3/uL (150.0-450.0); RED BLOOD COUNT 4.18 X10^6/uL (3.5-5.4); RED CELL DISTRIBUTION WIDTH 17.2 % (11.6-16.5); WHITE BLOOD COUNT 5.7 X10^3/uL (3.6-10.0)
[2020-09-17 05:23] LABS: ALANINE AMINOTRANSFERASE 38 Units/L (12-78); ALBUMIN 2.6 g/dL (3.4-5.0); ALKALINE PHOSPHATASE 96 Units/L (46-116); ASPARTATE AMINO TRANSFERASE 55 Units/L (15-37); BLOOD UREA NITROGEN 39 mg/dL (7-18); CHLORIDE 103 mmol/L (98-107); COR CA(FOR HYPOALB) 10.1 mg/dL (8.5-10.1); CREATININE 1.46 mg/dL (0.55-1.02); SODIUM 147 mmol/L (136-145); TOTAL PROTEIN 6.1 g/dL (6.4-8.2); eGFR NON BLACK RACES 37 (>60)
[2020-09-17 05:42] LABS: ANISOCYTOSIS SLIGHT; HYPOCHROMASIA SLIGHT; PLATELET MORPHOLOGY COMMENT NORMAL (NORMAL)
[2020-09-17] MEDS: NS 250 ML IV 250 ML IV PRN (06:14)
[2020-09-17] MEDS: FLONASE NASAL SPRAY ENOSTRIL SCH (08:41)
[2020-09-17] MEDS: COREG TAB 3.125 MG PO SCH ×2 (08:41→21:00)
[2020-09-17] MEDS: CELEXA PO SCH (08:41)
[2020-09-17] MEDS: K-DUR TAB 20 MEQ PO SCH ×3 (08:42→23:17)
[2020-09-17] MEDS: LASIX IVP SCH ×2 (08:42→21:00)
[2020-09-17] MEDS: HEMOCYTE-PLUS PO SCH (08:42)
[2020-09-17] MEDS: PROTONIX INJ 40 MG VIAL IVP SCH ×2 (08:42→21:00)
[2020-09-17] MEDS: TAMBOCOR PO SCH ×2 (08:43→21:00)
[2020-09-17] MEDS: ZITHROMAX INJ 500 MG VIAL 500 MG in NS 250 ML IV 250 ML IV SCH (08:44)
[2020-09-17] MEDS: XARELTO PO SCH (08:44)
[2020-09-17 10:01] LABS: ABG BASE EXCESS 19.1 mmol/L (-2.0-2.0)
[2020-09-17 10:02] LABS: ABG ALLEN TEST POS; ABG HCO3 46.6 mmol/L (22-26)
[2020-09-17] MEDS: ZOFRAN INJ 4 MG VIAL IVP PRN (10:18)
[2020-09-17] MEDS ORDERED: NYSTATIN POWDER ONE (10:54)
[2020-09-17] MEDS: NYSTATIN POWDER TOP SCH ×2 (13:31→21:00)
[2020-09-17] MEDS: MAGIC MOUTHWASH (Orig. Formula) MT SCH ×3 (13:57→21:00)
[2020-09-17] MEDS: ROBITUSSIN DM PO SCH ×3 (13:57→21:00)
[2020-09-17] MEDS: CRESTOR TAB 10 MG PO SCH (21:00)
[2020-09-17] MEDS: LYRICA CAP 150 mg PO SCH (21:00)
[2020-09-18 05:11] LABS: BASOPHILS % (AUTO) 0.3 % (0.2-1.0); EOSINOPHILS % (AUTO) 0.2 % (0.9-2.9); HEMATOCRIT 33.6 % (36.0-47.0); HEMOGLOBIN 10.5 g/dL (12.0-16.0); LYMPHOCYTES # (AUTO) 0.7 X10^3/uL (1.3-2.9); LYMPHOCYTES % (AUTO) 17.3 % (21.0-51.0); MEAN CORPUSCULAR HEMOGLOBIN 25.9 pg (27.0-34.0); MEAN CORPUSCULAR HGB CONC 31.4 g/dL (33.0-35.0); MEAN CORPUSCULAR VOLUME 82.7 fL (80.0-100.0); MEAN PLATELET VOLUME 10.5 fL (7.4-11.0); MONOCYTES # (AUTO) 0.4 x10^3/uL (0.3-0.8); MONOCYTES % (AUTO) 10.1 % (0.0-13.0); NEUTROPHILS # (AUTO) 3.1 x10^3/uL (2.2-4.8); NEUTROPHILS % (AUTO) 72.1 % (42.0-75.0); PLATELET COUNT 64 X10^3/uL (150.0-450.0); RED BLOOD COUNT 4.07 X10^6/uL (3.5-5.4); RED CELL DISTRIBUTION WIDTH 17.5 % (11.6-16.5); WHITE BLOOD COUNT 4.3 X10^3/uL (3.6-10.0)
[2020-09-18 05:23] LABS: ALANINE AMINOTRANSFERASE 38 Units/L (12-78); ALBUMIN 2.7 g/dL (3.4-5.0); ALKALINE PHOSPHATASE 99 Units/L (46-116); ASPARTATE AMINO TRANSFERASE 55 Units/L (15-37); BLOOD UREA NITROGEN 45 mg/dL (7-18); CHLORIDE 101 mmol/L (98-107); CREATININE 1.43 mg/dL (0.55-1.02); SODIUM 143 mmol/L (136-145); eGFR NON BLACK RACES 38 (>60)
[2020-09-18 05:31] LABS: CARBON DIOXIDE 40.2 mmol/L (21-32)
[2020-09-18 06:01] LABS: ANISOCYTOSIS SLIGHT; HYPOCHROMASIA SLIGHT; PLATELET MORPHOLOGY COMMENT NORMAL (NORMAL)
[2020-09-18] MEDS: VOLTAREN 1 % GEL MULTI DOSE TUBE TOP SCH (06:02)
--- NOTE | 2020-09-18 06:18 | RAD ---
HISTORYFollow-up pneumoniaSTUDYChest AP [id number]/01/2020FINDINGSThere is a pacemaker present in the left axilla. There is a right -sided central line with its tip near the cavoatrial junction. Heart is enlarged. No congestive heart failure is noted. The lungs are mildly hypoinflated. Right upper lobe perihilar infiltrate is unchan ged. The remainder of the lung huynh are clear. No pleural effusions are identified. Bony thorax is unremarkable.IMPRESSIONCardiomegaly without congestive heart failure, unchangedUnchanged right upper lobe perihilar infiltrate. The remainder of the lung huynh are now clearElectronically signed by: LAUREN HASSAN (Sep 18, 2020 06:16:21)
[2020-09-18] MEDS: CELEXA PO SCH (09:23)
[2020-09-18] MEDS: HEMOCYTE-PLUS PO SCH (09:25)
[2020-09-18] MEDS: COREG TAB 3.125 MG PO SCH (09:25)
[2020-09-18] MEDS: NYSTATIN POWDER TOP SCH (09:26)
[2020-09-18] MEDS: K-DUR TAB 20 MEQ PO SCH (09:26)
[2020-09-18] MEDS: LASIX IVP SCH (09:26)
[2020-09-18] MEDS: MAGIC MOUTHWASH (Orig. Formula) MT SCH ×2 (09:27→13:37)
[2020-09-18] MEDS: FLONASE NASAL SPRAY ENOSTRIL SCH (09:27)
[2020-09-18] MEDS: ROBITUSSIN DM PO SCH ×2 (09:28→13:37)
[2020-09-18] MEDS: XARELTO PO SCH (09:28)
[2020-09-18] MEDS: PROTONIX INJ 40 MG VIAL IVP SCH (09:28)
[2020-09-18] MEDS: TAMBOCOR PO SCH (09:28)
[2020-09-18] MEDS ORDERED: PHENERGAN INJ 25 MG IM ONE ×2 (10:25→10:32)
[2020-09-18 15:41] VITALS: BP 118/60
== END 2020-09-18 15:20 ==
LOC: OBS → ICU 18:43
PROVIDERS: ADMIT Internal Medicine; ATTEND Internal Medicine